=== PATIENT | female | born 2000 | race Caucasian/White ===

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

== ENCOUNTER 2022-07-26 13:21 | Emergency (ER) | payer BC, SELFPAY ==
[2022-07-26 14:02] VITALS: BP 125/80; PULSE 77; RESP 18; TEMP 36.6; O2SAT 99
[2022-07-26 14:49] LABS: Basophils Absolute Auto 0.1 K/mm3 (0.0-0.1); Basophils Percent Auto 0.8 % (0.2-1.2); Eosinophils Absolute Auto 0.2 K/mm3 (0-0.3); Eosinophils Percent Auto 2.1 % (0-4.4); Hematocrit 36.4 % (37.0-47.0); Hemoglobin 11.3 g/dL (12.0-15.0); Immature Granulocyte Absolute 0.04 K/mm3 (0.00-0.031); Immature Granulocyte Percent A 0.3 % (0-0.5); Lymphocytes Absolute Auto 1.74 K/mm3 (0.9-3.2); Lymphocytes Percent Auto 15.2 % (18.3-44.2); Mean Corpuscular Hemoglobin 26.4 pg (26-34); Mean Platelet Volume 10.3 fl (7.4-10.4); Monocytes Absolute Auto 0.9 K/mm3 (0.1-0.6); Monocytes Percent Auto 7.8 % (2.6-8.5); Neutrophils Absolute Auto 8.5 K/mm3 (1.3-6.7); Neutrophils Percent Auto 73.8 % (45.5-73.1); Platelet Count Result 296 k/mm3 (150-375); Red Blood Count 4.28 M/mm3 (4.2-5.4); Red Cell Distribution Width 14.2 % (11.5-14.5); White Blood Count 11.5 K/mm3 (4.5-10.0)
[2022-07-26 14:57] LABS: Appearance Urine Slightly Cloudy (Clear); Bilirubin Urine Negative (Negative); Blood Urine Negative (Negative); Color Urine Yellow (Yellow); Glucose Urine UA Negative (Negative); Ketones Urine Negative (Negative); Leukocyte Esterase Ur Negative LEU/UL (Negative); Nitrate Urine Negative (Negative); Protein Urine Negative (Negative); Urobilinogen Urine 0.2 mg/dL (<2.0)
[2022-07-26 15:33] LABS: Amorphous Sediment Urine Few; Bacteria Urine Trace /hpf; Mucus Urine Rare /lpf; RBC Urine 0-2 /hpf (0-2); Squamous Epithelial Cell Urine Many /hpf (Few); WBC Urine 0-3 /hpf
[2022-07-26 15:35] LABS: Add Urine Microscopic? YES
--- NOTE | 2022-07-26 21:10 | PC.NURSE ---
Pt did not answer for roll call at this time.
== END 2022-07-26 21:39 | disposition left against medical advice (07) ==
PROVIDERS: Emergency Provider Emergency Medicine; PCP Nurse Practitioner Adult Health
DX: R10.9 Unspecified abdominal pain (principal)
CPT/HCPCS: 36415; 81001; 81025; 85025; 99199

== ENCOUNTER 2022-12-22 11:24 | Emergency (ER) | payer BC, SELFPAY ==
--- NOTE | ~2022-12-22 | CT_ITS ---
EXAMINATION: CT abdomen pelvis w con DATE: 12/22/2022 14:28 INDICATION: Right upper quadrant tenderness, nausea and vomiting TECHNIQUE: Computed tomography (CT) of the abdomen and pelvis was performed with 100 CC Omnipaque 350 intravenous contrast. Automated exposure control and iterative reconstruction technique were employe d. Exam dose: 1269.45 mGy-cm total exam DLP. COMPARISON: None. FINDINGS: The lung bases are clear of infiltrate or consolidation. Normal heart size. No pericardial or pleural effusion. The liver, gallbladder, bile ducts, pancreas, pancreatic duct, spleen, adrenal glands and kidneys are unremarkable. The urinary bladder, uterus and adnexal areas are unremarkable. Normal appendix. No bowel obstruction, bowel wall thickening, pneumatosis or intraperitoneal free air. Small fat-containing umbilical hernia. Vertebroplasty at T8. No suspicious osteolytic or osteoblastic lesions are noted. IMPRESSION: Vertebroplasty at T8 Normal appendix If there is concern for cholelithiasis, consider gallbladder ultrasound, which would be more sensitiv e than CT examination. Reviewed, dictated and finalized at [facility]. Reviewed, dictated and finalized at [facility]. IMPRESSION: Vertebroplasty at T8 Normal appendix If there is concern for cholelithiasis, consider gallbladder ultrasound, which would be more sensitive than CT examination.
[2022-12-22 11:29] VITALS: BP 125/72; PULSE 72; RESP 18; TEMP 36.3; O2SAT 100
[2022-12-22 12:09] LABS: Basophils Percent Auto 0.6 % (0.2-1.2); Eosinophils Absolute Auto 0.1 K/mm3 (0-0.3); Eosinophils Percent Auto 1.3 % (0-4.4); Hematocrit 37.9 % (37.0-47.0); Hemoglobin 11.9 g/dL (12.0-15.0); Immature Granulocyte Absolute 0.02 K/mm3 (0.00-0.031); Immature Granulocyte Percent A 0.3 % (0-0.5); Lymphocytes Absolute Auto 1.37 K/mm3 (0.9-3.2); Lymphocytes Percent Auto 19.2 % (18.3-44.2); Mean Corpuscular HGB Conc 31.4 g/dl (32-36); Mean Corpuscular Hemoglobin 26.6 pg (26-34); Mean Corpuscular Volume 84.6 fl (80-100); Monocytes Absolute Auto 0.5 K/mm3 (0.1-0.6); Monocytes Percent Auto 6.7 % (2.6-8.5); Neutrophils Absolute Auto 5.1 K/mm3 (1.3-6.7); Neutrophils Percent Auto 71.9 % (45.5-73.1); Platelet Count Result 299 k/mm3 (150-375); Red Blood Count 4.48 M/mm3 (4.2-5.4); Red Cell Distribution Width 13.7 % (11.5-14.5); White Blood Count 7.1 K/mm3 (4.5-10.0)
[2022-12-22 12:14] LABS: Appearance Urine Cloudy (Clear); Bacteria Urine Rare /hpf; Bilirubin Urine Negative (Negative); Blood Urine Negative (Negative); Color Urine Yellow (Yellow); Glucose Urine UA Negative (Negative); Ketones Urine Trace mg/dL (Negative); Leukocyte Esterase Ur Negative LEU/UL (Negative); Nitrate Urine Negative (Negative); Non Pathogenic Casts 0-2; Protein Urine Trace mg/dL (Negative); Specific Grav Ur 1.025 (1.001-1.035); Squamous Epithelial Cell Urine Moderate /hpf (Few); pH Urine 7.5 (5.0-9.0)
[2022-12-22 12:21] LABS: Add Urine Microscopic? YES
[2022-12-22 12:23] LABS: Alanine Aminotransferase 20 U/L (6-35); Albumin Level 4.7 g/dL (3.5-5.1); Alkaline Phosphatase 79 U/L (38-126); Anion Gap 9 mmol/L (8-16); Aspartate Amino Transferase 25 U/L (14-36); Bilirubin,Total 0.7 mg/dL (0.2-1.3); Blood Urea Nitrogen 9 mg/dL (7-17); Carbon Dioxide 24 mmol/L (22-30); Chloride 106 mmol/L (98-107); Estimated CRCL calculation 196 ml/min; Estimated Glomerular Filt Rate > 60; Glucose 87 mg/dL (65-110); Lipase 74 U/L (23-300); Sodium 139 mmol/L (137-145)
--- NOTE | 2022-12-22 13:00 | ED.ABDPAIN ---
HPI - Abdominal Pain General Chief Complaint: Abdominal Pain Stated Complaint: abdominal pain Time Seen by Provider: 12/22/22 12:00 History of Present Illness HPI narrative: Patient is a 22-year-old female presenting with abdominal pain. Patient states that for the last year to year and a half she has struggled with chronic left-sided abdominal pain. She has seen GI and they have tried multiple medications which have provided minimal relief. States that for the last several days she has had a right upper quadrant pain that radiates to her right flank. States that she has never had this kind of pain before. States that she has had several episodes of emesis. States that she has not vomited today but she does have a decreased appetite. Denies fevers or chills, chest pain, shortness of breath, dysuria, hematuria, vaginal discharge, leg swelling. States that she just finished her menstrual cycle. Related Data Home Medications Medication Instructions Recorded Confirmed escitalopram oxalate 10 mg tablet 10 mg PO DAILY 08/11/21 08/11/21 (Lexapro) ferrous fumarate 325 mg (106 mg 325 mg PO DAILY 08/11/21 08/11/21 iron) tablet Allergies Allergy/AdvReac Type Severity Reaction Status Date / Time No Known Allergies Allergy Verified 12/22/22 11:40 Review of Systems Review of Systems: All systems reviewed & are unremarkable except as noted in HPI and below PMFSH Past Medical History Medical History Anxiety Depression Encounter for Nexplanon removal 08/11/2021 Insertion of Nexplanon (~07/11/20) Family History Family History Grandparent Acute myocardial infarction Lung cancer Hypertension Social History Social History Smoking status: Current some day smoker Tobacco type: e-cigarettes/vaping Alcohol intake: never Alcohol use details: occasional Substance use: never Substance use type: does not use Occupation/Education: unemployed Gender identity (if verbalized by the patient): Female Sexual Orientation (if Verbalized by the Patient): Straight or Heterosexual Exam Narrative: GENERAL: Nontoxic, intermittently tearful secondary to anxiety, pleasant and cooperative HEAD: Normocephalic, atraumatic. EYES: PERRLA and EOMI. ENT: Nares clear, no rhinorrhea or epistaxis. Mucous membranes moist. NECK: Supple. CHEST: Clear to auscultation. No respiratory distress. HEART: Regular rate and rhythm. ABDOMEN: Soft, + mildly tender RUQ/LUQ/LLQ, no guarding or rebound EXTREMITIES: Normal range of motion. No edema. SKIN: Warm, dry, no rash. NEURO: No focal deficits. Alert and oriented x3. PSYCH: anxious, intermittently tearful Course Vital Signs Vital signs: Vital Signs Temperature 97.4 F L 12/22/22 11:29 Pulse Rate 72 12/22/22 11:29 Respiratory Rate 18 12/22/22 11:29 Blood Pressure 125/72 12/22/22 11:29 Pulse Oximetry 100 12/22/22 11:29 Oxygen Delivery Room Air 12/22/22 11:29 Temperature 97.4 F L 12/22/22 11:29 Pulse Rate 68 12/22/22 17:40 Respiratory Rate 18 12/22/22 11:29 Blood Pressure 118/73 12/22/22 17:40 Pulse Oximetry 99 12/22/22 17:40 Oxygen Delivery Room Air 12/22/22 11:29 MDM - Abdominal Pain MDM Narrative Medical decision making narrative: Patient is a 22-year-old female presenting with right-sided abdominal pain. Vitals within normal limits. Exam remarkable for the above. As the patient swelling me that the right upper quadrant pain is no and her left-sided pain is worsened, feel CT abdomen pelvis is necessary. Will check labs, give fluids and small dose of Ativan for her anxiety. Blood work is unremarkable. No leukocytosis. No transaminitis. Lipase is normal. CT abdomen pelvis shows no acute abnormalities. Do not feel further imaging is warranted for cho
[2022-12-22] MEDS: LORazepam INJ (*CRX) 2 MG/ML VIAL 0.5 MG IV PUSH (13:17)
[2022-12-22] MEDS: SODIUM CHLORIDE 0.9% IV 1,000 ML 999 ML IV CONT (13:17)
[2022-12-22 14:36] VITALS: BP 124/76; PULSE 79; O2SAT 99
[2022-12-22 17:40] VITALS: BP 118/73; PULSE 68; O2SAT 99
== END 2022-12-22 17:41 | disposition home or self-care (01) ==
PROVIDERS: General Practice; Emergency Provider Emergency Medicine
DX: R10.11 Right upper quadrant pain (principal); F41.9 Anxiety disorder, unspecified; F32.A Depression, unspecified; F17.290 Nicotine dependence, other tobacco product, uncomplicated
CPT/HCPCS: 36415; 74177; 80053; 81001; 81025; 83690; 85025; 87077; 87086; 87088; 96361; 96374; 99284; J2060; J7030; Q9967

== ENCOUNTER 2023-02-21 22:08 | Emergency (ER) | payer BC, SELFPAY ==
--- NOTE | ~2023-02-21 | XR_ITS ---
Clinical Indication: Chest pain PA and lateral views of the chest: Comparison: None Findings: The lungs are clear, without evidence of focal consolidation or pleural effusion. Cardiome diastinal silhouette is within normal limits. Bones and soft tissues are unremarkable. Impression: Normal chest. Reviewed, dictated and finalized at location . Impression: Normal chest.
[2023-02-21 22:15] VITALS: BP 152/99; PULSE 93; RESP 16; TEMP 36.9; O2SAT 99
--- NOTE | 2023-02-21 22:15 | ECG_ITS ---
Measurements Intervals [place] Rate: 88 P: 48 MO: 119 QRS: 39 QRSD: 106 T: 11 QT: 344 QTc: 417 Interpretive Statements SINUS RHYTHM WITH SINUS ARRHYTHMIA WITH SHORT MO INTERVAL POSSIBLE LEFT ATRIAL ENLARGEMENT [-0.1mV P WAVE IN V1/V2] POSSIBLE RIGHT VENTRICULAR CONDUCTION DELAY [RSR (QR) IN V1/V2] BORDERLINE ECG NO PREVIOUS ECG AVAILABLE FOR COMPARISON Electronically Signed On 02-22-2023 12:58:22 CDT by Kleber Amaral M.D.
--- NOTE | 2023-02-21 23:15 | PC.NURSE ---
X-ray called and advised that patient wanted a test before X-ray.
[2023-02-22] VITALS (15 sets, daily range): BP systolic 122–152; BP diastolic 65–127; PULSE 85–105; RESP 15–24; O2SAT 99–100
[2023-02-22 02:10] LABS: Basophils Percent Auto 0.4 % (0.2-1.2); Eosinophils Absolute Auto 0.3 K/mm3 (0-0.3); Eosinophils Percent Auto 2.5 % (0-4.4); Hematocrit 35.6 % (37.0-47.0); Hemoglobin 10.9 g/dL (12.0-15.0); Immature Granulocyte Absolute 0.03 K/mm3 (0.00-0.031); Immature Granulocyte Percent A 0.3 % (0-0.5); Lymphocytes Absolute Auto 1.82 K/mm3 (0.9-3.2); Lymphocytes Percent Auto 17.7 % (18.3-44.2); Mean Corpuscular HGB Conc 30.6 g/dl (32-36); Mean Corpuscular Hemoglobin 26.3 pg (26-34); Mean Platelet Volume 10.8 fl (7.4-10.4); Monocytes Absolute Auto 0.8 K/mm3 (0.1-0.6); Monocytes Percent Auto 7.6 % (2.6-8.5); Neutrophils Absolute Auto 7.3 K/mm3 (1.3-6.7); Neutrophils Percent Auto 71.5 % (45.5-73.1); Platelet Count Result 238 k/mm3 (150-375); Red Blood Count 4.14 M/mm3 (4.2-5.4); Red Cell Distribution Width 14.7 % (11.5-14.5); White Blood Count 10.3 K/mm3 (4.5-10.0)
[2023-02-22 02:20] LABS: Alanine Aminotransferase 29 U/L (6-35); Albumin Level 4.3 g/dL (3.5-5.1); Alkaline Phosphatase 59 U/L (38-126); Anion Gap 7 mmol/L (8-16); Aspartate Amino Transferase 30 U/L (14-36); Bilirubin,Total 0.4 mg/dL (0.2-1.3); Blood Urea Nitrogen 12 mg/dL (7-17); Carbon Dioxide 21 mmol/L (22-30); Chloride 107 mmol/L (98-107); Estimated CRCL calculation 190 ml/min; Estimated Glomerular Filt Rate > 60; Glucose 93 mg/dL (65-110); Lipase 67 U/L (23-300); Potassium 3.7 mmol/L (3.4-5.0); Sodium 135 mmol/L (137-145)
[2023-02-22 02:30] LABS: Troponin I < 0.012 ng/mL (0.000-0.034)
[2023-02-22 02:31] LABS: Anisocytosis 1+ (NORMAL); Crenated RBC 1+ (NORMAL); Platelet Estimate Adequate (Adequate); Prothrombin Time 13.7 Seconds (11.1-14.7); Schistocytes None Seen (NORMAL)
[2023-02-22 02:32] LABS: Partial Thromboplastin Time 21.6 SECONDS (22.3-36.8)
[2023-02-22] MEDS: hydrOXYzine HCL 25 MG TABLET PO (03:12)
[2023-02-22] MEDS: ONDANSETRON INJ 4 MG/2 ML VIAL IV PUSH (03:12)
--- NOTE | 2023-02-22 03:50 | ED.CHESTPAIN ---
HPI - Chest Pain General Chief Complaint: Chest Pain Stated Complaint: chest pain Time Seen by Provider: 02/22/23 01:14 Source: patient Mode of arrival: ambulatory Limitations: no limitations History of Present Illness HPI narrative: 22-year-old female presents today with concerns of chest pain. Patient with known history of anxiety seeing a counselor waiting to see psychiatry. Chest pain is intermittent and has been over the last 2 to 3 days. Patient denies any aggravating or alleviating factors. Denies any medical history of cardiac issues. Also denies known family history of cardiac issues. Does endorse of shortness of breath with chest tightness. Denies any recent long trips. She does not smoke, does not use control. Related Data Home Medications Medication Instructions Recorded Confirmed escitalopram oxalate 10 mg tablet 10 mg PO DAILY 08/11/21 08/11/21 (Lexapro) ferrous fumarate 325 mg (106 mg 325 mg PO DAILY 08/11/21 08/11/21 iron) tablet Allergies Allergy/AdvReac Type Severity Reaction Status Date / Time No Known Allergies Allergy Verified 12/22/22 11:40 Review of Systems Review of Systems: All systems reviewed & are unremarkable except as noted in HPI and below PMFSH Past Medical History Medical History Anxiety Depression Encounter for Nexplanon removal 08/11/2021 Insertion of Nexplanon (~07/11/20) Family History Family History Grandparent Acute myocardial infarction Lung cancer Hypertension Social History Social History Smoking status: Current some day smoker Tobacco type: e-cigarettes/vaping Alcohol intake: never Alcohol use details: occasional Substance use: never Substance use type: does not use Occupation/Education: unemployed Gender identity (if verbalized by the patient): Female Sexual Orientation (if Verbalized by the Patient): Straight or Heterosexual Exam Const: General: cooperative, healthy appearing, comfortable, no acute distress and well developed Orientation/consciousness: patient oriented x3 HENMT: Head: normal to inspection Eyes: General: appearance normal, both eyes and all related structures Chest: Chest palpation & inspection: normal inspection of the chest and tenderness (left mid chest) Resp: Effort & Inspection: normal respiratory effort and able to speak in complete sentences Auscultation: clear to auscultation bilaterally Cardio: Rate: regular rate Rhythm: regular rhythm Heart sounds: S1 normal heart sound present and S2 normal heart sound present Neuro: General: patient oriented x3 Extrem: General: normal to inspection Other: Normal range of motion upper extremities. No pain with movement. Course Course Emergency Course: Discussed results with patient. States she is currently having heaviness and feels anxious. Did review EKG, labs and that nothing is concerning at this time. Will treat with some Atarax. Patient with nausea given Zofran. Patient feeling better without chest tightness or nausea. Will discharge home. Vital Signs Vital signs: Vital Signs Temperature 98.4 F 02/21/23 22:15 Pulse Rate 93 02/21/23 22:15 Respiratory Rate 16 02/21/23 22:15 Blood Pressure 152/99 H 02/21/23 22:15 Pulse Oximetry 99 02/21/23 22:15 Oxygen Delivery Room Air 02/21/23 22:15 Temperature 98.4 F 02/21/23 22:15 Pulse Rate 88 02/22/23 03:04 Respiratory Rate 18 02/22/23 03:04 Blood Pressure 122/73 02/22/23 03:04 Pulse Oximetry 100 02/22/23 03:04 Oxygen Delivery Room Air 02/21/23 22:15 MDM - Chest Pain MDM Narrative Medical decision making narrative: 22-year-old female HPI as noted. Differentials as noted below. Work-up to include CBC, CMP, urine test, D-dimer, lipase, chest x-ray. CBC wit
== END 2023-02-22 04:24 | disposition home or self-care (01) ==
PROVIDERS: Emergency Medicine; Emergency Provider Nurse Practitioner Family
DX: R07.9 Chest pain, unspecified (principal); F41.9 Anxiety disorder, unspecified; F17.290 Nicotine dependence, other tobacco product, uncomplicated; F32.A Depression, unspecified
CPT/HCPCS: 36415; 71046; 80053; 81025; 83690; 84484; 85025; 85055; 85380; 85610; 85730; 93005; 96374; 99284; A9270; J2405

== ENCOUNTER 2024-12-15 15:54 | Outpatient (CLI) | payer OTHER, SELFPAY ==
--- NOTE | ~2024-12-15 | XR_ITS ---
Cervical Spine: AP, lateral, open-mouth views Clinical History: Pain Findings: The normal lordotic curve is maintained. The vertebral bodies and posterior elements appea r intact. The intervertebral disc spaces are well maintained. Pre-vertebral soft tissues are unremar kable. Impression: No significant abnormality is seen. Reviewed, dictated and finalized at [facility]. Impression: No significant abnormality is seen.
--- OUTSIDE RECORDS SUMMARY | 2024-12-15 15:58 | XMS_ITS | Referral Summary ---
Author Organization [facility] Address [address] [place] [id number] Care Team Providers Care Sharepoint Application Architect Name Role Phone No, Physician Primary Care Provider Unknown, Notinfile Unavailable Unavailable Allergies No known active allergies Medications diclofenac sodium (VOLTAREN) 1 % gel Apply 2 g topically 4 (four) times a day 50 g 2 3 Active omeprazole (PriLOSEC) 40 mg capsule Take 1 capsule (40 mg total) by mouth daily 30 capsule 2 3 Active ondansetron ODT (ZOFRAN-ODT) 4 mg disintegrating tablet Dissolve 1 tablet oral every 4 hours as needed for nausea or vomiting. 20 tablet 3 Active Active Problems Problem Noted Date Diagnosed Date Esophageal dysphagia 11/22/2022 Social History Tobacco Use Types Packs/Day Years Used Date Smoking Tobacco: Never Tobacco Cessation:Counseling Given: Not Answered Alcohol Use Standard Drinks/Week Comments Not Currently 0 (1 standard drink = 0.6 oz pur e alcohol) AUDIT-C Answer Date Recorded Frequency of Alcohol Consumption Not on file 11/22/2022 Q2: How many drinks containi ng alcohol do you have on a typical day when you are drinking? Patient does not drink 3 Frequency of Binge Drinking Not on file 10/2022 PHQ-2 Answer Date Recorded PHQ-2 Total Score (If total score is 3 or more points, staff should administer the PHQ-9) 0 11/22/2022 Personal Safety Answer Date Recorded Have you ever been in or are you currently in a harmful physical or emotional relationship or is someone making you feel afraid or unsafe? Denies 06/12/2023 Comments No Sex and Gender Information Value Date Recorded Sex Assigned at Not on file Legal Sex Female 7:43 PM PRINT MANAGER Gender Identity Not on file Sexual Orientation Not on file Last Filed Vital Signs Vital Sign Reading Time Taken Comments Blood Pressure 118/66 06/12/2023 6:40 AM PRINT MANAGER Pulse 113 06/12/2023 6:40 AM PRINT MANAGER Temperature 36.8 C (98.2 F) 06/12/2023 6:40 AM PRINT MANAGER Respiratory Rate 18 06/12/2023 6:40 AM PRINT MANAGER Oxygen Saturation 99% 06/12/2023 6:40 AM PRINT MANAGER Inhaled Oxygen Concentration - - Weight 117.9 kg (260 lb) 06/12/2023 2:16 AM PRINT MANAGER Height 167.6 cm (5' 6 ) 06/12/2023 2:16 AM PRINT MANAGER Body Mass Index 41.97 06/12/2023 2:16 AM PRINT MANAGER Plan of Treatment Not on file Insurance [facility] Member Subscriber Plan / Payer (Ef fective 2020-Present) Name:Wilder Holland Relation to Subscriber:Self Name:Wilder Holland Payer ID:[id number] (NAIC) Type:MEDICAID RISK OTHER [address] [facility] Care Teams Sharepoint Application Architect Relationship Specialty Start Date End Date No, Physician PCP - General 07/26/22 Unknown, Notinfile 07/26/22
--- OUTSIDE RECORDS SUMMARY | 2024-12-15 15:58 | XMS_ITS | CONTINUITY OF CARE DOCUMENT ---
Author Name loy granado Address Unknown Organization [facility] Address [address] [place] [address] [address] [place] [address] Phone [phone] Care Team Providers Care [employer] Supervisor Name Role Phone Javier GEORGE, Richa Unavailable Keysha HISTORIC SITES SUPERVISOR, Secil Unavailable [phone] Keysha HISTORIC SITES SUPERVISOR, Secil Unavailable PROBLEMS Condition Status Date Provider Notes IRON DEFICIENCY active Goran Tran MD nml b12 and foalte Screening completed - Viet Augustin eng d and chol and crp and pro and tsh and a1c and uacr and lpa Obesity active Goran Tran MD Exposure to SARS-associated coronavirus;NEG SWAB and IGG completed - Viet Mathewi Chest pain--echo, routine stress nl, 03/2023 active Viet Augustin Palpitations active Goran Tran MD Abnormal electrocardiogram completed 03/20 - Viet Mathewi Shortness of breath active Viet Ahmedzai Anxiety active Viet Augustin Tobacco abuse--quit active Viet Augustin ENCOUNTERS Date Type Provider Location Encounter Diag nosis - In-person encounter Office Visit Richa Herrera MD [place] Office ScreeningExposure to SARS-associated coronavirus;NEG SWAB and IGGChest pain--echo, routine stress nl, bnormal electrocardiogramShortness of breathAnxietyTobacco abuse--quit - In-person encounter Office Visit Goran Tran MD [place] [facility] ScreeningObesityExposure to SARS-associated coronavirus;NEG SWAB and IGGChest pain--echo, routine stress nl, alpitations VITAL SIGNS Date Observation Value Provider Body Mass Index (Ratio) 43.41 kg/m2 Andrzej Herrera MD blood pressure, diastolic 71 mm[Hg] Ham contreras Shonda blood pressure, systolic 129 mm[Hg] She alejandro Shonda pulse rate 78 /min Eleanor Merchant weight E&M 269 [lb_av] Eleanor Merchant oxygen saturation, oximetry 98 % Eleanor Merchant respiratory rate E&M 16 /min Eleanor Merchant blood pressure, cuff size large ben Shonda height E&M 66 [in_i] Eleanor Shonda weight E&M 266 [lb_av] Caity Jose Alfredochaparrita gomez Body Mass Index (Ratio) 42.93 kg/m2 Adis Tran MD blood pressure, diastolic 86 mm[Hg] Beatrice Thomas blood pressure, systolic 112 mm[Hg] Bridgette Thomas respiratory rate E&M 17 /min Ree chang pulse rate 81 /min Ree Thomas oxygen saturation, oximetry 100 % Ree Thomas weight E&M 266 [lb_av] Ree Thomas height E&M 66 [in_i] Ree Thomas blood pressure, cuff size large An norma Thomas HISTORY OF MEDICATION USE Medication Status Instructions Dates Provider Indications Com ments FeroSul 325 mg (65 mg iron) tablet active TAKE 1 TABLET BY MOUTH EVERY DAY Goran Tran MD SOCIAL HISTORY Date Observation Value Provider social history E&M S moking History: Robin red has never smoked. Viet Augustin smoking status Never smoker Eleanor Merchant social history reviewed E&M revi ewed - no changes required Viet Augustin social history E&M S moking History: Robin red is a former smoker. Goran Tran MD social history reviewed E&M revi ewed - no changes required Goran Tran MD smoking, year quit 2022 Ree Will iams cigarette use yes Ree William smoking status Former smoker Ree Kayode jim INSURANCE PROVIDERS Payer name Policy type / Coverage type Logan red republican ID [facility] [id number] ADVANCE DIRECTIVES Name Date DISCUSSED - NO DECISION MADE TREATMENT PLAN Date Name Performer [id number],S, Viet Ahkathleen i [id number],S, Vietalan Mathew i [id number],S, Vietalan Mathew i [id number],S, Viet Mathew i [id number],S, Viet Mathew i [id number],S, Vietalan Mathew i [id number],NGoran MD [id number],SGoran MD [id number],SGoran MD [id number],S,E GFR 132 [address] EG LIPASE N EG BRAIN AND ABD CT Goran Tran MD [id number],Goran Jim MD Cardiology Viet Augustin Cardiology Viet Augustin Cardiology Viet Augustin Cardiology Viet Augustin Cardiology Viet Augustin Cardiology Viet Augustin Cardiology Goran Tran MD Cardiology Goran Tran MD Cardiology Goran Tran MD Cardiology:EGFR [address] EG LIPASE N EG BRAIN AND ABD CT Goran Tran MD Cardiology Goran Tran MD Date Name X-Ray, Cervical Spin e CT Cervical Spine wi thout contrast FOLATE, SERUM VITAMIN B12 Monitor - Telemetry (Mobile Cardiac) CRP, high sensitivit y PROBNP, N TERMINAL TSH, free T4, total T3 Lipoprotein (a) LIPID PANEL Stress Routine Complete Echo CXR- PA/Lat Vitamin D, 25-Hydrox y HEMOGLOBIN A1c Microalb/Creatinine Urine, Random IRON AND TOTAL IRON BINDING CAPACITY FERRITIN HISTORY OF PROCEDURES Procedure Date Procedure Name Provider Procedure Notes S tatus EKG Goran Tran MD complete d
--- OUTSIDE RECORDS SUMMARY | 2024-12-15 15:58 | XMS_ITS | Clinical Summary ---
Author Organization [facility] Address [address] [place] [id number] Care Team Providers Care Tours Hostess Name Role Phone No, Physician Primary Care Provider [phone] Unknown, Notinfile Unavailable Unavailable Allergies No known [...] Noted Date Diagnosed Date Esophageal dysphagia 11/22/2022 Surgical History Surgery Date Site/Laterality Comments UPPER GASTROINTESTINAL ENDOSCOPY Medical History Medical History Date Comments IBS (irritable bowel syndrome) Anxiety Social History Tobacco Use Types Packs/Day Years [...] on file Legal Sex Female 7:43 PM PHLEBOTOMY SUPPORT TECH Gender Identity Not on file Sexual Orientation Not on file Obstetrics History Last Filed Vital Signs Vital Sign Reading Time Taken Comments Blood Pressure 118/66 06/12/2023 6:40 AM PHLEBOTOMY SUPPORT TECH Pulse 113 06/12/2023 6:40 AM PHLEBOTOMY SUPPORT TECH Temperature 36.8 C (98.2 F) 06/12/2023 6:40 AM PHLEBOTOMY SUPPORT TECH Respiratory Rate 18 06/12/2023 6:40 AM PHLEBOTOMY SUPPORT TECH Oxygen Saturation 99% 06/12/2023 6:40 AM PHLEBOTOMY SUPPORT TECH Inhaled Oxygen Concentration - - Weight 117.9 kg (260 lb) 06/12/2023 2:16 AM PHLEBOTOMY SUPPORT TECH Height 167.6 cm (5' 6 ) 06/12/2023 2:16 AM PHLEBOTOMY SUPPORT TECH Body Mass Index 41.97 06/12/2023 2:16 AM PHLEBOTOMY SUPPORT TECH Plan of Treatment Health Maintenance Due Date Last Done Comments Cervical Cancer Screening 2002 Hepatitis C Screening 2002 Varicella Vaccines (2 of 2 - 2-dose childhood series) 08/07/2012 05/15/2012 Meningococcal B Vaccine (1 o f 2 - Standard) 2018 Regular Well Visit/Exam 18-64 2020 Depression Screening 11/23/2023 11/22/2022 DTaP/Tdap/Td Vaccine (7 - Td or Tdap) 02/25/2025 02/25/2015, 11/12/2007, 01/25/2006, Additional history exists Influenza Vaccine (Season Ended) 2025 Hepatitis B Screening Completed 2002 , 2002, 2002 Pneumococcal vaccine <65 Completed 004, 02/06/2003, 2002, Additional history exists HPV Vaccines Completed 12/30/2017, 02/25/2015 Insurance [facility] Care Teams Tours Hostess Relationship Specialty Start Date End Date No, Physician PCP - General 07/26/22 Unknown, Notinfile 07/26/22
--- OUTSIDE RECORDS SUMMARY | 2024-12-15 15:58 | XMS_ITS | Clinical Summary ---
Author Organization [facility] Address [address] [place] [address] Phone Care Team Providers Care Account Executive Agribusiness Name Role Phone Provider, None Primary Care Provider Unavailabl e Allergies No known active allergies Medications No known medications Social History Tobacco Use Types Packs/Day Years Used Date Smoking Tobacco: Never Smokeless Tobacco: Never Alcohol Use Standard Drinks/Week Comments Never 0 (1 standard drink = 0.6 oz pur e alcohol) Comments Unknown Sex and Gender Information Value Date Recorded Sex Assigned at Not on file Legal Sex Female 4:03 PM CDT Gender Identity Not on file Sexual Orientation Not on file Last Filed Vital Signs Vital Sign Reading Time Taken Comments Blood Pressure 116/70 01/10/2022 6:29 PM CDT Pulse 66 01/10/2022 6:29 PM CDT Temperature 36.4 C (97.5 F) 01/10/2022 6:29 PM CDT Respiratory Rate 16 01/10/2022 6:29 PM CDT Oxygen Saturation 99% 01/10/2022 6:29 PM CDT Inhaled Oxygen Concentration - - Weight 115.7 kg (255 lb) 01/10/2022 4:10 PM CDT Height 167.6 cm (5' 6 ) 01/10/2022 4:10 PM CDT Body Mass Index 41.16 01/10/2022 4:10 PM CDT Plan of Treatment Not on file Insurance MEDICAID [place] Care Teams Account Executive Agribusiness Relationship Specialty Start Date End Date Provider, None [place] PCP - General 01/10/22
[2024-12-15 19:06] LABS: Iron 56 ug/dL (37-170)
[2024-12-15 19:09] LABS: Alanine Aminotransferase 20 U/L (6-35); Albumin Level 4.2 g/dL (3.5-5.1); Alkaline Phosphatase 65 U/L (38-126); Anion Gap 6 mmol/L (4-12); Aspartate Amino Transferase 49 U/L (14-36); Bilirubin,Total 0.3 mg/dL (0.2-1.3); Blood Urea Nitrogen 11 mg/dL (7-17); Carbon Dioxide 26 mmol/L (22-30); Chloride 107 mmol/L (98-107); Estimated Glomerular Filt Rate > 60; Glucose 85 mg/dL (65-110); Potassium 4.3 mmol/L (3.4-5.0); Sodium 139 mmol/L (137-145)
[2024-12-15 19:25] LABS: Percent Iron Saturation 16 % (20-50)
[2024-12-15 20:15] LABS: Basophils Absolute Auto 0.1 K/mm3 (0.0-0.1); Basophils Percent Auto 0.6 % (0.2-1.2); Eosinophils Absolute Auto 0.3 K/mm3 (0-0.3); Eosinophils Percent Auto 2.9 % (0-4.4); Hemoglobin 11.1 g/dL (12.0-15.0); Immature Granulocyte Absolute 0.35 K/mm3 (0.00-0.031); Immature Granulocyte Percent A 3.9 % (0-0.5); Lymphocytes Absolute Auto 1.95 K/mm3 (0.9-3.2); Lymphocytes Percent Auto 21.6 % (18.3-44.2); Mean Corpuscular Hemoglobin 25.8 pg (26-34); Mean Corpuscular Volume 85.8 fl (80-100); Mean Platelet Volume 10.5 fl (7.4-10.4); Monocytes Absolute Auto 0.7 K/mm3 (0.1-0.6); Monocytes Percent Auto 7.9 % (2.6-8.5); Neutrophils Absolute Auto 5.7 K/mm3 (1.3-6.7); Neutrophils Percent Auto 63.1 % (45.5-73.1); Platelet Count Result 303 k/mm3 (150-375); Red Blood Count 4.31 M/mm3 (4.2-5.4); Red Cell Distribution Width 14.6 % (11.5-14.5)
== END 2024-12-15 15:55 | disposition home or self-care (01) ==
LOC: ANHBWCLAB 15:56
PROVIDERS: PCP Nurse Practitioner Adult Health; Visit Provider Nurse Practitioner Adult Health
DX: M54.2 Cervicalgia (principal); R07.89 Other chest pain; Z86.2 Personal history of diseases of the blood and blood-forming organs and certain disorders involving the immune mechanism
CPT/HCPCS: 36415; 72040; 80053; 82607; 82728; 83540; 83550; 85025

== ENCOUNTER 2024-12-22 15:30 | Emergency (ER) | payer OTHER, SELFPAY ==
[2024-12-22] VITALS (9 sets, daily range): BP systolic 114–138; BP diastolic 51–95; PULSE 82–100; RESP 16–18; TEMP 36.6; O2SAT 99–100
--- OUTSIDE RECORDS SUMMARY | 2024-12-22 15:33 | XMS_ITS | Clinical Summary ---
Author Organization [facility] Address [address] [place] [address] Care Team Providers Care Crm Marketing Executive Name Role Phone No, Physician Primary Care Provider [phone] Unknown, Notinfile Unavailable Unavailable Allergies No known [...] on file Legal Sex Female 7:43 PM NURSING HOME MANAGER Gender Identity Not on file Sexual Orientation Not on file Obstetrics History Last Filed Vital Signs Vital Sign Reading Time Taken Comments Blood Pressure 118/66 06/12/2023 6:40 AM NURSING HOME MANAGER Pulse 113 06/12/2023 6:40 AM NURSING HOME MANAGER Temperature 36.8 C (98.2 F) 06/12/2023 6:40 AM NURSING HOME MANAGER Respiratory Rate 18 06/12/2023 6:40 AM NURSING HOME MANAGER Oxygen Saturation 99% 06/12/2023 6:40 AM NURSING HOME MANAGER Inhaled Oxygen Concentration - - Weight 117.9 kg (260 lb) 06/12/2023 2:16 AM NURSING HOME MANAGER Height 167.6 cm (5' 6) 06/12/2023 2:16 AM NURSING HOME MANAGER Body Mass Index 41.97 06/12/2023 2:16 AM NURSING HOME MANAGER Plan of Treatment Health Maintenance Due Date [...] exists HPV Vaccines Completed 12/30/2017, 02/25/2015 Insurance [facility] PLAN [facility] PL[facility] PL[facility] PL[facility] Care Teams Crm Marketing Executive Relationship Specialty Start Date End Date No, Physician PCP - General 07/26/22 Unknown, Notinfile 07/26/22
--- OUTSIDE RECORDS SUMMARY | 2024-12-22 15:33 | XMS_ITS | Referral Summary ---
Author Organization [facility] Address [address] [place] [address] Care Team Providers Care Director Metabolism Name Role Phone No, Physician Primary Care Provider [phone] Unknown, Notinfile Unavailable Unavailable Allergies No known [...] on file Legal Sex Female 7:43 PM COIL WINDING SUPERVISOR Gender Identity Not on file Sexual Orientation Not on file Last Filed Vital Signs Vital Sign Reading Time Taken Comments Blood Pressure 118/66 06/12/2023 6:40 AM COIL WINDING SUPERVISOR Pulse 113 06/12/2023 6:40 AM COIL WINDING SUPERVISOR Temperature 36.8 C (98.2 F) 06/12/2023 6:40 AM COIL WINDING SUPERVISOR Respiratory Rate 18 06/12/2023 6:40 AM COIL WINDING SUPERVISOR Oxygen Saturation 99% 06/12/2023 6:40 AM COIL WINDING SUPERVISOR Inhaled Oxygen Concentration - - Weight 117.9 kg (260 lb) 06/12/2023 2:16 AM COIL WINDING SUPERVISOR Height 167.6 cm (5' 6) 06/12/2023 2:16 AM COIL WINDING SUPERVISOR Body Mass Index 41.97 06/12/2023 2:16 AM COIL WINDING SUPERVISOR Plan of Treatment Not on file Insurance [facility] Member Subscriber Plan / Payer (Ef fective 2020-Present) Name:Wilder Holland Relation to Subscriber:Self Name:Wilder Holland Payer ID:[id number] (NAIC) Type:MEDICAID RISK OTHER [address] [facility] PLAN [facility] PLAN [facility] Care Teams Director Metabolism Relationship Specialty Start Date End Date No, Physician PCP - General 07/26/22 Unknown, Notinfile 07/26/22
--- OUTSIDE RECORDS SUMMARY | 2024-12-22 15:33 | XMS_ITS | Clinical Summary ---
Author Organization [facility] Address [address] [place] [address] Phone Care Team Providers Care Electrician Sound Name Role Phone Provider, None Primary Care [...] 4:10 PM CDT Height 167.6 cm (5' 6) 01/10/2022 4:10 PM CDT Body Mass Index 41.16 01/10/2022 4:10 PM CDT Plan of Treatment Not on file Insurance [place] Care Teams Electrician Sound Relationship Specialty Start Date End Date Provider, None [place] PCP - General 01/10/22
--- OUTSIDE RECORDS SUMMARY | 2024-12-22 15:33 | XMS_ITS | CONTINUITY OF CARE DOCUMENT ---
Author Name loy granado Address Unknown Organization [facility] Address [address] [place] [address] [address] [place] [address] Phone [phone] Care Team Providers Care Hot Mill Shearer Name Role Phone Javier GEORGE, Richa Unavailable [phone] Keysha SUPERVISOR HAND SILVERING, Secil Unavailable Keysha SUPERVISOR HAND SILVERING, Secil Unavailable [phone] PROBLEMS Condition Status Date Provider Notes IRON DEFICIENCY active Goran Tran MD nml b12 and foalte Screening completed - Viet Augustin eng d and chol and crp and pro and tsh and a1c and uacr and lpa Obesity active Goran Tran MD Exposure to SARS-associated coronavirus;NEG SWAB and IGG completed - Viet Augustin Chest pain--echo, routine stress nl, 03/2023 active Viet Augustin Palpitations active Goran Tran MD Abnormal electrocardiogram completed 03/20 - Viet Mathewi Shortness of breath active Viet Ahmedzai Anxiety active Viet Augustin Tobacco abuse--quit active Viet Augustin ENCOUNTERS Date Type Provider Location Encounter Diag nosis - In-person encounter Office Visit Richa Herrera MD [place] Office ScreeningExposure to SARS-associated coronavirus;NEG SWAB and IGGChest pain--echo, routine stress nl, bnormal electrocardiogramShortness of breathAnxietyTobacco abuse--quit - In-person encounter Office Visit Goran Tran MD [place] Office ScreeningObesityExposure to SARS-associated coronavirus;NEG SWAB and [...] Payer name Policy type / Coverage type [employer] red alliance party ID [facility] [id number] ADVANCE DIRECTIVES Name Date DISCUSSED - NO DECISION MADE TREATMENT PLAN Date Name Performer [id number],S, Ivet Ahkathleen i [id number],S, Vietalan Mathew i [id number],S, Vietalan Mathew i [id number],S, Viet Mathew i [id number],S, Viet Mathew i [id number],S, Vietalan Mathew i [id number],NGoran MD [id number],SGoran MD [id number],SGoran MD [id number],S,E GFR 132 N EG LIPASE N EG BRAIN AND ABD CT Goran Tran MD [id number],Goran Jim MD Cardiology Viet Augustin Cardiology Viet [...]
--- NOTE | 2024-12-22 15:38 | ECG_ITS ---
Test Date: 2024-12-22 15:42:35 Measurements Intervals [place] Rate: 86 P: 36 IA: 134 QRS: 14 QRSD: 97 T: 5 QT: 372 QTc: 447 Interpretive Statements SINUS RHYTHM WITH MARKED SINUS ARRHYTHMIA EARLY PRECORDIAL R/S TRANSITION CONSIDER INFERIOR INFARCT, AGE INDETERMINATE BASELINE ARTIFACT- I, II, III, AVR, AVL, AVF, V6 ABNORMAL ECG No previous ECG available for comparison Electronically Signed On 12-22-2024 15:46:15 CDT by Joseph Cam D.O.
--- OUTSIDE RECORDS SUMMARY | 2024-12-22 16:41 | XMS_ITS | Referral Summary ---
Author Organization [facility] Address [address] [place] [address] Care Team Providers Care Billet Header Name Role Phone No, Physician Primary Care Provider [phone] Unknown, Notinfile Unavailable Unavailable Allergies No known [...] on file Legal Sex Female 7:43 PM ASSEMBLY LINE UPHOLSTERER Gender Identity Not on file Sexual Orientation Not on file Last Filed Vital Signs Vital Sign Reading Time Taken Comments Blood Pressure 118/66 06/12/2023 6:40 AM ASSEMBLY LINE UPHOLSTERER Pulse 113 06/12/2023 6:40 AM ASSEMBLY LINE UPHOLSTERER Temperature 36.8 C (98.2 F) 06/12/2023 6:40 AM ASSEMBLY LINE UPHOLSTERER Respiratory Rate 18 06/12/2023 6:40 AM ASSEMBLY LINE UPHOLSTERER Oxygen Saturation 99% 06/12/2023 6:40 AM ASSEMBLY LINE UPHOLSTERER Inhaled Oxygen Concentration - - Weight 117.9 kg (260 lb) 06/12/2023 2:16 AM ASSEMBLY LINE UPHOLSTERER Height 167.6 cm (5' 6) 06/12/2023 2:16 AM ASSEMBLY LINE UPHOLSTERER Body Mass Index 41.97 06/12/2023 2:16 AM ASSEMBLY LINE UPHOLSTERER Plan of Treatment Not on file Insurance [facility] Member Subscriber Plan / Payer (Ef fective 2020-Present) Name:Wilder Holland Relation to Subscriber:Self Name:Wilder Holland Payer ID:[id number] (NAIC) Type:MEDICAID RISK OTHER [address] [facility] PLAN [facility] PLAN [facility] Care Teams Billet Header Relationship Specialty Start Date End Date No, Physician PCP - General 07/26/22 Unknown, Notinfile 07/26/22
--- OUTSIDE RECORDS SUMMARY | 2024-12-22 16:41 | XMS_ITS | CONTINUITY OF CARE DOCUMENT ---
Author Name loy granado Address Unknown Organization [facility] Address [address] [place] [address] [address] [place] [address] Phone [phone] Care Team Providers Care Emergency Medicine Specialist Name Role Phone Javier GEORGE, Richa Unavailable Keysha SEPTIC TANK SERVICE TECHNICIAN, Secil Unavailable Keysha SEPTIC TANK SERVICE TECHNICIAN, Secil Unavailable PROBLEMS Condition Status Date Provider [...] In-person encounter Office Visit Richa Herrera MD [place] Office ScreeningExposure to SARS-associated coronavirus;NEG SWAB and IGGChest pain--echo, routine stress nl, bnormal electrocardiogramShortness of breathAnxietyTobacco abuse--quit - In-person encounter Office Visit Goran Tran MD [place] Office ScreeningObesityExposure to SARS-associated coronavirus;NEG SWAB and [...] Payer name Policy type / Coverage type [place] red democrat ID [facility] [id number] ADVANCE DIRECTIVES Name Date DISCUSSED - NO DECISION MADE TREATMENT PLAN Date Name Performer [id number],S, Viet Ahkathleen i [id number],S, Vietalan Mathew i [id number],S, Vietalan Mathew i [id number],S, Viet Mathew i [id number],S, Viet Mathew i [id number],S, Vietalan Mathew i [id number],NGoran MD [id number],SGoran MD [id number],SGoran MD [id number],S,E GFR 132 N EG LIPASE N EG BRAIN AND ABD CT Goran Tran MD [id number],Goran Jim MD Cardiology Viet Augustin Cardiology Viet [...]
--- OUTSIDE RECORDS SUMMARY | 2024-12-22 16:41 | XMS_ITS | Clinical Summary ---
Author Organization [facility] Address [address] [place] [address] Care Team Providers Care Hospital Liaison Name Role Phone No, Physician Primary Care Provider [phone] Unknown, Notinfile Unavailable Unavailable Allergies No known [...] on file Legal Sex Female 7:43 PM INFORMATION TECHNOLOGY TECHNICIAN Gender Identity Not on file Sexual Orientation Not on file Obstetrics History Last Filed Vital Signs Vital Sign Reading Time Taken Comments Blood Pressure 118/66 06/12/2023 6:40 AM INFORMATION TECHNOLOGY TECHNICIAN Pulse 113 06/12/2023 6:40 AM INFORMATION TECHNOLOGY TECHNICIAN Temperature 36.8 C (98.2 F) 06/12/2023 6:40 AM INFORMATION TECHNOLOGY TECHNICIAN Respiratory Rate 18 06/12/2023 6:40 AM INFORMATION TECHNOLOGY TECHNICIAN Oxygen Saturation 99% 06/12/2023 6:40 AM INFORMATION TECHNOLOGY TECHNICIAN Inhaled Oxygen Concentration - - Weight 117.9 kg (260 lb) 06/12/2023 2:16 AM INFORMATION TECHNOLOGY TECHNICIAN Height 167.6 cm (5' 6) 06/12/2023 2:16 AM INFORMATION TECHNOLOGY TECHNICIAN Body Mass Index 41.97 06/12/2023 2:16 AM INFORMATION TECHNOLOGY TECHNICIAN Plan of Treatment Health Maintenance Due Date [...] exists HPV Vaccines Completed 12/30/2017, 02/25/2015 Insurance [facility] PLAN [facility] PLAN [facility] PLAN [facility] PLAN Care Teams Hospital Liaison Relationship Specialty Start Date End Date No, Physician PCP - General 07/26/22 Unknown, Notinfile 07/26/22
--- OUTSIDE RECORDS SUMMARY | 2024-12-22 16:41 | XMS_ITS | Clinical Summary ---
Author Organization [facility] Address [address] [place] [address] Phone Care Team Providers Care Safe And Vault Service Mechanic Name Role Phone Provider, None Primary Care [...] Insurance MEDICAID [place] Care Teams Safe And Vault Service Mechanic Relationship Specialty Start Date End Date Provider, None [place] PCP - General 01/10/22
--- NOTE | 2024-12-22 16:49 | ED.ARRPALP ---
HPI - Arrhythmia/Palpitations General Chief Complaint: Arrhythmia/Palpitations Stated Complaint: PALPATATIONS Time Seen by Provider: 12/22/24 15:36 History of Present Illness HPI narrative: Patient has a history of anxiety, and the last 2 weeks has had all several episodes where she felt her heart rate going very high, she would have chest pain difficulty breathing and feel like her hands and face were going numb, with so that it was anxiety attack but has follow-up to Cardiology. She started having some palpitations again earlier today so came in to be checked out. Symptoms now resolved Related Data Home Medications ?Medication ?Instructions ?Recorded ?Confirmed ?Last Taken ?Type multivitamin with iron 1 tablet PO DAILY 09/03/24 12/15/24 Unknown History Allergies Allergy/AdvReac Type Severity Reaction Status Date / Time No Known Allergies Allergy Verified 12/22/24 15:31 Review of Systems Review of Systems: All systems reviewed & are unremarkable except as noted in HPI and below PMFSH Past Medical History Medical History (Updated 12/22/24 @ 16:38 by Isela Stewart MD) Encounter for Nexplanon removal 08/11/2021 Insertion of Nexplanon (~07/11/20) Depression Anxiety Family History Family History Grandparent Acute myocardial infarction Lung cancer Hypertension Mother Depression Anxiety Grandparent Cancer Social History Social History (Updated 08/06/24 @ 08:37 by Yesenia Flores MA) Smoking status: Current some day smoker Tobacco type: e-cigarettes/vaping Alcohol intake: former Alcohol use details: occasional Substance use: never Substance use type: does not use Do You Feel Safe in your Home?: Yes Lack of Transportation: No Lack of Food: Never True Current Housing: I Have Housing Concerned About Future Housing: No Difficulty Paying Gas/Electric Bills: No Difficulty Paying for Meds: No Currently Unemployed: No Education: High School Diploma/GED Difficulty w/ Childcare or Family Care: No Living arrangements: other Additional living arrangements comments: not listed 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 EYES: EOMI, conjunctiva normal ENT: Hearing grossly intact LUNGS: Nonlabored breathing. HEART: [Regular rate and rhythm] ABD: [Soft], [nontender to palpation] EXT: Normal range of motion SKIN: [No rashes or lesions.] NEURO: [Alert and oriented x 3. No gross focal sensory or strength deficits.] PSYCH: Normal affect Course Vital Signs Vital signs: Vital Signs Temperature 98 F 12/22/24 15:38 Pulse Rate 87 12/22/24 15:38 Respiratory Rate 16 12/22/24 15:38 Blood Pressure 138/95 H 12/22/24 15:38 Pulse Oximetry 100 12/22/24 15:38 Oxygen Delivery Room Air 12/22/24 15:38 Temperature 98 F 12/22/24 15:38 Pulse Rate 90 12/22/24 15:51 Respiratory Rate 16 12/22/24 15:38 Blood Pressure 138/95 H 12/22/24 15:38 Pulse Oximetry 100 12/22/24 15:38 Oxygen Delivery Room Air 12/22/24 15:38 MDM - Arrhythmia/Palpitations MDM Narrative Medical decision making narrative: Patient with history of anxiety presenting here with symptoms consistent with panic attack. On exam patient is in no distress, well appearing, with normal vital signs. Already had multiple chest x-rays done of the last few days so with shared decision-making, will not get this today. EKG - 12-Lead: Performed at 1542. Interpreted by me. [Sinus rhythm]. Rate 86. [Normal] axis. TN-interval 134. QRS duration 97. QTc 447. [No ST segment elevation or depression]. [T-wave normal]. Impression: No EKG evidence of acute ischemia or dysrhythmia. Discussed with patient that if she is continuing to have these episodes of palpitations, and she has follow-up to Cardiology, who could potentially obtain a Holter monitor to monitor for any signs of arrhythmia which she is happy to do. with strict return precautions. Discharge Plan Discharge Clinical Impression: Heart palpitations Patient Disposition: Home Condition: Stable Instructions: Heart Palpitations (ED) Additional Instructions: Use the Holter monitor as instructed and follow up with the embossing press operator apprentice. You can always return to the emergency room for any further issues. Patient Language: Chinese Prescriptions: No Action multivitamin with iron Tablet 1 tablet PO DAILY escitalopram oxalate [Lexapro] 10 mg tablet 10 mg PO DAILY Qty: 90 0RF Other Ambulatory Orders: CA holter monitor 3-7 day (Routine) Timeframe: 1 Day Location: Determined by Patient Ordered By: Isela Stewart Follow-up/Referrals: Lilian Min APRN [Primary Care Provider] -
--- NOTE | 2024-12-29 15:37 | WPDHOLTEREM ---
Holter/Event Monitor Holter/Event Monitor Date of procedure: 12/22/24 Holter/Event Procedure: 3-7 Day Holter Monitor Indications: Palpitations Conclusion: 1. 3 days holter monitor on 12/22/24. 2. Underlying rhythm is sinus rhythm. HR range 46-142 bpm; average HR 73 bpm. HR at 46 bpm was on 12/25/24 at 2:22 pm. 3. There are rare premature supraventricular complexes. No supraventricular tachycardia. 4. There are rare premature ventricular complexes. No ventricular tachycardia. 5. No significant pauses greater than 3 seconds. 6. Patient reports 10 episodes of symptoms of heart racing, lightheadedness, uncomfortable, sick, fluttering, chest pain, shakey which demonstrate sinus rhythm, HR range 64-88 bpm with 1 PVC.
== END 2024-12-22 17:04 | disposition home or self-care (01) ==
LOC: ANHED 16:40
PROVIDERS: Emergency Provider Emergency Medicine; PCP Nurse Practitioner Adult Health
DX: R00.2 Palpitations (principal); F17.290 Nicotine dependence, other tobacco product, uncomplicated
CPT/HCPCS: 93005; 93242; 99284

== ENCOUNTER 2025-01-30 22:08 | Emergency (ER) | payer OTHER, SELFPAY ==
--- OUTSIDE RECORDS SUMMARY | 2025-01-30 22:10 | XMS_ITS | Referral Summary ---
Author Organization [facility] Address [address] [place] [address] Care Team Providers Care Filament Shaper Name Role Phone No, Physician Primary Care Provider [phone] Unknown, Notinfile Unavailable Unavailable Allergies No known [...] on file Legal Sex Female 7:43 PM SOFTWARE DEVELOPMENT SPECIALIST Gender Identity Not on file Sexual Orientation Not on file Last Filed Vital Signs Vital Sign Reading Time Taken Comments Blood Pressure 118/66 06/12/2023 6:40 AM SOFTWARE DEVELOPMENT SPECIALIST Pulse 113 06/12/2023 6:40 AM SOFTWARE DEVELOPMENT SPECIALIST Temperature 36.8 C (98.2 F) 06/12/2023 6:40 AM SOFTWARE DEVELOPMENT SPECIALIST Respiratory Rate 18 06/12/2023 6:40 AM SOFTWARE DEVELOPMENT SPECIALIST Oxygen Saturation 99% 06/12/2023 6:40 AM SOFTWARE DEVELOPMENT SPECIALIST Inhaled Oxygen Concentration - - Weight 117.9 kg (260 lb) 06/12/2023 2:16 AM SOFTWARE DEVELOPMENT SPECIALIST Height 167.6 cm (5' 6) 06/12/2023 2:16 AM SOFTWARE DEVELOPMENT SPECIALIST Body Mass Index 41.97 06/12/2023 2:16 AM SOFTWARE DEVELOPMENT SPECIALIST Plan of Treatment Not on file Insurance [facility] Member Subscriber Plan / Payer (Ef fective 2020-Present) Name:Wilder Holland Relation to Subscriber:Self Name:Wilder Holland Payer ID:[id number] (NAIC) Type:MEDICAID RISK OTHER [address] [facility] PLAN [facility] PLAN [facility] Care Teams Filament Shaper Relationship Specialty Start Date End Date No, Physician PCP - General 07/26/22 Unknown, Notinfile 07/26/22
--- OUTSIDE RECORDS SUMMARY | 2025-01-30 22:10 | XMS_ITS | Clinical Summary ---
Author Organization [facility] Address [address] [place] [address] Phone Care Team Providers Care Data Conversion Analyst Name Role Phone Provider, None Primary Care [...] Insurance MEDICAID [place] Care Teams Data Conversion Analyst Relationship Specialty Start Date End Date Provider, None [place] PCP - General 01/10/22
--- OUTSIDE RECORDS SUMMARY | 2025-01-30 22:10 | XMS_ITS | Clinical Summary ---
Author Organization [facility] Address [address] [place] [address] Care Team Providers Care Compressor Technician Name Role Phone No, Physician Primary Care Provider [phone] Unknown, Notinfile Unavailable Unavailable Allergies No known [...] on file Legal Sex Female 7:43 PM STUDENT MINISTRY PASTOR Gender Identity Not on file Sexual Orientation Not on file Obstetrics History Last Filed Vital Signs Vital Sign Reading Time Taken Comments Blood Pressure 118/66 06/12/2023 6:40 AM STUDENT MINISTRY PASTOR Pulse 113 06/12/2023 6:40 AM STUDENT MINISTRY PASTOR Temperature 36.8 C (98.2 F) 06/12/2023 6:40 AM STUDENT MINISTRY PASTOR Respiratory Rate 18 06/12/2023 6:40 AM STUDENT MINISTRY PASTOR Oxygen Saturation 99% 06/12/2023 6:40 AM STUDENT MINISTRY PASTOR Inhaled Oxygen Concentration - - Weight 117.9 kg (260 lb) 06/12/2023 2:16 AM STUDENT MINISTRY PASTOR Height 167.6 cm (5' 6) 06/12/2023 2:16 AM STUDENT MINISTRY PASTOR Body Mass Index 41.97 06/12/2023 2:16 AM STUDENT MINISTRY PASTOR Plan of Treatment Health Maintenance Due Date [...] exists HPV Vaccines Completed 12/30/2017, 02/25/2015 Insurance [facility] PLAN [facility] PLAN [facility] PLAN [facility] PLAN Care Teams Compressor Technician Relationship Specialty Start Date End Date No, Physician PCP - General 07/26/22 Unknown, Notinfile 07/26/22
--- OUTSIDE RECORDS SUMMARY | 2025-01-30 22:11 | XMS_ITS | Data Portability ---
Author Organization [facility] Address [address] [place] [address] Assessment No assessment recorded. Plan of Treatment Reminders Order Date Submit Date Provider Last Modified By Organization Details Last Modified Time Details Appointments U/S F/U 2024 09:00A Megha TIJERINA MD Not available Not available Not available Lab 17-hydrox yprogestPRISCILLA vallecillo, serum 2024 025 [facility] (Lab), [address] [place], [address], 01/14/2025 04:30:40 dhea-sulf ate, serum 2024 025 [facility] (Lab), [address] [place], [address], 01/14/2025 04:30:37 estradiol , serum 2024 025 [facility] (Lab), [address] [place], [address], 01/14/2025 04:30:38 FSH (follicle -stimulat ing hormone), serum 2024 025 [facility] (Lab), [address] [place], [address], 01/14/2025 04:30:38 HbA1c (hemoglob in A1c), blood 2024 025 [facility] (Lab), [address] [facility] [place], [address], 01/14/2025 04:30:39 lh (luteiniz ing hormone), serum 2024 025 [facility] (Lab), [address] [place], [address], 01/14/2025 04:30:39 progester one, serum 2024 025 [facility] (Lab), [address] [facility], [place], [address], 01/14/2025 04:30:37 prolactin , serum 2024 025 [facility] (Lab), [address] [facility], [place], [address], 01/14/2025 04:30:38 TSH, serum or plasma 2024 025 [facility] (Lab), [address] [place], [address], 01/14/2025 04:30:38 testoster one free/test osterone total, ratio, serum 2024 025 [facility] (Lab), [address] [place], [address], 01/14/2025 04:30:39 test, urine 2024 025 [email or web address] [facility], [address], [address], [place], [address], 01/06/2025 10:17:13 CBC w/ diff 2024 025 [facility] (Lab), [address] [place], [address], 01/13/2025 04:02:47 urinalysi s, dipstick 2024 025 [email or web address] [facility], [address], [place], [address], 01/06/2025 11:04:32 Referral None recorded. Procedures None recorded. Surgeries None recorded. Imaging US, pelvis [email or web address], [address], [place], [address], 01/13/2025 09:56:35 US, transvagi nal [email or web address], [address], [place], [address], 01/13/2025 09:56:35 US, pelvis, complete 2024 025 ELY [facility], [address], [place], [address], 01/14/2025 04:12:26 Medication Orders progester one micronize d 200 mg capsule 2024 025 Not available 01/08/2025 10:56:16 Patient TargetsNo targets recorded. Patient InstructionsNo instructions recorded. Reason for Referral None Reported. Results Created Date Observation Date Name Description Value Unit Range Abnormal Flag Note LastModifiedBy Organization Detail LastModifiedTime 01/07/2001/06/2025 PROLA CTIN prolactin, total 29.40 NG/mL 4.79-2 3.30 high This assay was perfo rmed using [employer] ratio n reage nts and test kits. Value s obtai daryl with other assay metho ds or kits canno t be used inter goode eably . Not Available [facility] (Lab) [address], [place], [address], 01/14/2025 04:30:37 01/07/2001/06/2025 urina lysis , dipst ick Leukocytes - Not Available Chai d[facility] [address], [place], [address], 01/06/2025 11:03:57 01/07/20 25 01/06/2025 urina lysis , dipst ick Nitrite - Not Available [facility] [address], [place], [address], 01/06/2025 11:03:57 01/07/20 25 01/06/2025 urina lysis , dipst ick Urobilinogen - Not Available [facility] [address], [place], [address], 01/06/2025 11:03:57 01/07/20 25 01/06/2025 urina lysis , dipst ick Protein trace Not Available [facility] [address], [place], [address], 01/06/2025 11:03:57 01/07/20 25 01/06/2025 urina lysis , dipst ick pH 8 Not Available [facility] [address], [place], [address], 01/06/2025 11:03:57 01/07/20 25 01/06/2025 urina lysis , dipst ick Blood +++ Not Available [facility] [address], [place], [address], 01/06/2025 11:03:57 01/07/20 25 01/06/2025 urina lysis , dipst ick Specific [place] 1.000 Not Available [facility] [address], [place], [address], 01/06/2025 11:03:57 01/07/20 25 01/06/2025 urina lysis , dipst ick Ketone - Not Available [facility] [address], [place], [address], 01/06/2025 11:03:57 01/07/20 25 01/06/2025 urina lysis , dipst ick Bilirubin - Not Available [facility] [address], [place], [address], 01/06/2025 11:03:57 01/07/20 25 01/06/2025 urina lysis , dipst ick Glucose - Not Available [facility] [address], [place], [address], 01/06/2025 11:03:57 01/07/20 25 01/06/2025 urina lysis , dipst ick Appearance clear Not Available [facility] [address], [place], [address], 01/06/2025 11:03:57 01/07/20 25 01/06/2025 urina lysis , dipst ick Color dark yellow Not Available [facility] [address], [place], [address], 01/06/2025 11:03:57 01/07/20 25 01/06/2025 pregn lakshmi test, urine HCG negati ve Not Available [facility] [address], [place], [address], 01/06/2025 10:16:12 01/26/20 25 01/25/2025 PROLA CTIN prolactin, total 41.50 NG/mL 4.79-2 3.30 high This assay was perfo rmed using [employer] ratio n reage nts and test kits. Value s obtai daryl with other assay metho ds or kits canno t be used inter goode eably . Not Available [facility] (Lab) [address], [place], [address], 01/26/2025 06:49:33 01/13/20 25 01/12/2025 US, modesto s No observ ation record ed. [email or web address] [facility] [address], [place], [address], 01/12/2025 13:33:28 01/13/20 25 01/12/2025 US, trans [email or web address] al No observ ation record ed. [email or web address] [facility] [address], [place], [address], 01/12/2025 13:33:37 01/13/20 25 01/12/2025 US, [place] s No observ ation record ed. [email or web address] [address], [place], [address], 01/14/2025 22:45:48 Result Notes None recorded. Medical Equipment None Reported. Medications Name Sig Start Date Stop Date Status Note LastModified by Organization Details LastModified Time cetirizine 10 mg tablet TAKE 1 TABLET BY MOUTH EVERY DAY 01/06 completed Not Available Not Available Not Available progesterone micronized 200 mg capsule Take 1 capsule every day by oral route for 14 days. 2024 active Not Available Not Available Not Avai lable fluticasone propionate 50 mcg/actuatio n nasal spray,suspen arina TAKE 1-2 SPRAYS EACH NOSTRIL ONCE A DAY 01/06 completed Not Available Not Available Not Available amoxicillin 875 mg-potassium clavulanate 125 mg tablet TAKE 1 TABLET BY MOUTH TWICE A DAY FOR 7 DAYS 01/06 completed Not Available Not Available Not Available Vitals Date Recorded Body height Body mass index (BMI) Body weight Systolic And Diastolic Provider Name and Address Organization Details Last Updated DateTime 01/06/2025 167.64 cm 43.6 kg/m2 449864.94 g 110/72 mm[Hg] Jacquelin Pñea [facility] 01/06/2025 09:51:54 Social History Question Answer Notes LastModified by Organizat ion Details LastModified Time Tobacco Smoking Status Never Smoker Jacquelin Peña [facility] 01/06/2025 09:48:23 Are You Blind Or Do You Have Difficulty Seeing? No [email or web address] Information n ot available 01/06/2025 What Is Your Level Of Caffeine Consumption? Moderate [email or web address] Information not available 01/06/2025 In The 14 Days Before Symptom Onset, Have You Had Close Contact With A Laboratory-confirm ed COVID-19 While That Case Was Ill? No [email or web address] Information n ot available 01/06/2025 In The 14 Days Before Symptom Onset, Have You Had Close Contact With A Person Who Is Under Investigation For COVID-19 While That Person Was Ill? No [email or web address] Information not available 01/06/2025 Have You Been To An Area Known To Be High Risk For COVID-19? No [email or web address] Information not available 01/06/2025 Are You Deaf Or Do You Have Serious Difficulty Hearing? No [email or web address] Information not available 01/06/2025 What Type Of Diet Are You Following? REGULAR [email or web address] Information n ot available 01/06/2025 What Is The Highest Grade Or Level Of School You Have Completed Or The Highest Degree You Have Received? [id number] [email or web address] Information not available 01/06/2025 Do You Use Protection During Sex? No [email or web address] Information not available 01/06/2025 Do You Use Your Seat Belt Or Car Seat Routinely? Yes [email or web address] Information not available 01/06/2025 Are You Sexually Active? Yes [email or web address] Information not available 01/06/2025 Do You Have Smoke And Carbon Monoxide Detectors In Your Home? Yes [email or web address] Information not available 01/06/2025 Do You Use Sunscreen Routinely? No [email or web address] Information not available 01/06/2025 Do You Have Difficulty Walking Or Climbing Stairs? No [email or web address] Information not available 01/06/2025 Sex: Unknown Functional Status Question Answer Note LastModified by Organizat ion Details LastModified Time What is your level of alcohol consumption? Occasional Information not available 01/06/2025 Are you currently employed? Yes [email or web address] Information not available 01/06/2025 Are you able to walk? [email or web address] Information not available 01/06/2025 Are you able to care for yourself? 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 No [email or web address] Information not available 01/06/2025 What is your exercise level? Moderate [email or web address] Information not available 01/06/2025 Mental Status Question Answer Note LastModified by Organization D etails LastModified Time Do you feel stressed (tense, restless, nervous, or anxious, or unable to sleep at night)? [id number] [email or web address] Information not available 01/06/2025 Family History Relationship Description Onset Age of this Age Resolved Age Notes LastModified by Organization Details LastModified Time Maternal Uncle Malignant tumor of colon Not available 2024 09:52:56 Maternal Grandmother Heart disease [email or web address] Not available 2024 09:53:09 Maternal Grandfather Diabetes mellitus Not available 2024 09:53:17 Medical History Condition Response Allergies (Food, seasonal, environmental ) N Other N Blood Transfusion N Drug/Latex Allergies/Reactions N Breast Cancer N Dermatologic Disorders N Lung Disease N Defects or Inherited Disease N Breast Problem N Gestational Diabetes N Hematologic disorders N Anesthesia Complications N History of STI N Deep Vein Thrombosis N Polycystic ovary syndrome N Anxiety Disorder N Autoimmune disease N Arthritis N Infertility N Polyps N Acid Reflux (GERD) N History of abnormal pap N Cancer N Stroke N Varicosities N Neurologic/Epilepsy N Endometriosis N High Cholesterol N Headaches N Fibromyalgia N Kidney Disease N Heart Problems N Kidney or Bladder Problems N Thyroid Problems N GI Problems N Eating Disorder N Anemia Y Art (IVF or FET) N Psychiatric Illness N Ovarian Cancer N Diabetes N Pulmonary (TB, Asthma) N Hepatitis/Liver Disease N No Past Medical History N Eczema N Urinary Tract Infection N Abuse/Domestic Violence N Asthma N Trauma/Violence N Depression/ depression N Heart Disease N Pre-Eclampsia N Hypertension N Osteoporosis N Thrombophilias N Gynecological History Statement/Question Response Flow Heavy Date of LMP 12/11/2024 Was last menstrual period normal N STIs/STDs N HPV Vaccine Y Duration of Flow (days) 27 Current Control Method None Are cycles usually normal Y Sexually Active? Y Menses Monthly Y Sexual Problems? N LMP Definite Obstetrics History GPAL:G 0 P 0 0 0 0 Past Encounters Encounter ID Performer Location Encounter Start Date Encounter Closed Date Diagnosis/Indication Diagnosis SNOMED-CT Code Diagnosis ICD10 Code Diagnosis Note [id number] Antony Dumont MD [facility] [address] [address] 01/06/2025 09:27:03 01/06/2025 10:47:29 Long menstrual cycle 135182356 N92.1 The patient and I discussed the various causes of abnormal uterine bleeding, including polyps, fibroids, hyperplasi a, atypia, anovulatio n, etc.Discus sed typical evaluation with labs and pelvic US. Discussed progestero ne 200 mg PO nightly x 14 days to help stop bleeding in the meantime.P elvic ultrasound ordered, labs ordered.Ag simms will follow-up if bleeding irregulari ty persists; patient is to contact office or go to nearest ED/Urgent care if fever >/= 100.1, pain, excessive bleeding (soaking pads < 1 hr), unusual drainage or swelling in area of concern; or experienci ng worsening sx's or new onset of concerning sx's. Understand ing verbalized . All questions answered to patient satisfacti on.RTO for ultrasound f/u and pelvic exam/pap smear. [id number] Antnoy Dumont MD [facility] [address] [address] 01/12/2025 12:12:35 01/12/2025 13:53:27 Long menstrual cycle 161607089 N92.1 Health Concerns Section Related Observation LastModified by Organization Detai ls LastModified Time None Recorded Concern Status LastModified by Organization Details LastModified Time None Recorded Advance Directives Directive None Recorded Payers Insurance Date Sequence Insurance Name Policy Number Policy Caban Covered Member ID Caban Member ID Guarantor Name 01/18/2025 1 [employer] [id number] Rosay Adcox [id number] Rosay Adcox Notes Date Note Type Note Provider Name and Address Organization Details Recorded Time 01/06/2025 text/html 24 y/o female presents to establish care and to discuss prolonged menstruation. Patient states that she has been bleeding for 26 days with moderate to heavy flow. Patient reports large blood clots in pad. Patient reports intermittent dizziness. 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 Patient states that cycles q28 days, last 6 days with moderate flow.Patient denies history of abnormal bleeding, PCOS, or known MANAGER PROGRESSIVE CARE abnormalities.Antonia ent states that the only new recent change has been starting escitalopram December 08, but patient states that she stopped the medication after 4 days since it made her nauseous. Neg pain of abd/pelvis/flankNe g urinary sx'sNeg GI sx'sNeg N/V/F/C/DNeg Vag d/c, odor, irritation, itching Jacquelin monsivais, [facility] 01/06/2025 11:05:12 OBGyn Episode No OBEpisode recorded.
[2025-01-30 22:14] VITALS: BP 149/85; PULSE 94; RESP 16; TEMP 36.7; O2SAT 100
--- OUTSIDE RECORDS SUMMARY | 2025-01-30 22:41 | XMS_ITS | Referral Summary ---
Author Organization [facility] Address [address] [place] [id number] Care Team Providers Care Construction Scheduler Name Role Phone No, Physician Primary Care Provider [phone] Unknown, Notinfile Unavailable Unavailable Allergies No known [...] on file Legal Sex Female 7:43 PM WEED SPRAYER Gender Identity Not on file Sexual Orientation Not on file Last Filed Vital Signs Vital Sign Reading Time Taken Comments Blood Pressure 118/66 06/12/2023 6:40 AM WEED SPRAYER Pulse 113 06/12/2023 6:40 AM WEED SPRAYER Temperature 36.8 C (98.2 F) 06/12/2023 6:40 AM WEED SPRAYER Respiratory Rate 18 06/12/2023 6:40 AM WEED SPRAYER Oxygen Saturation 99% 06/12/2023 6:40 AM WEED SPRAYER Inhaled Oxygen Concentration - - Weight 117.9 kg (260 lb) 06/12/2023 2:16 AM WEED SPRAYER Height 167.6 cm (5' 6) 06/12/2023 2:16 AM WEED SPRAYER Body Mass Index 41.97 06/12/2023 2:16 AM WEED SPRAYER Plan of Treatment Not on file Insurance [facility] Member Subscriber Plan / Payer (Ef fective 2020-Present) Name:Wilder Holland Relation to Subscriber:Self Name:Wilder Holland Payer ID:[id number] (NAIC) Type:MEDICAID RISK OTHER [address] [facility] PL[facility] PL[facility] Care Teams Construction Scheduler Relationship Specialty Start Date End Date No, Physician PCP - General 07/26/22 Unknown, Notinfile 07/26/22
--- OUTSIDE RECORDS SUMMARY | 2025-01-30 22:41 | XMS_ITS | Clinical Summary ---
Author Organization [facility] Address [address] [place] [address] Phone Care Team Providers Care Tool Mechanic Name Role Phone Provider, None Primary [...] Insurance MEDICA[place] Care Teams Tool Mechanic Relationship Specialty Start Date End Date Provider, None [place] PCP - General 01/10/22
--- OUTSIDE RECORDS SUMMARY | 2025-01-30 22:41 | XMS_ITS | Clinical Summary ---
Author Organization [facility] Address [address] [place] [id number] Care Team Providers Care Health And Wellness Instructor Name Role Phone No, Physician Primary Care Provider [phone] Unknown, Notinfile Unavailable Unavailable Allergies No known [...] on file Legal Sex Female 7:43 PM PRODUCT MANAGENT INTERN Gender Identity Not on file Sexual Orientation Not on file Obstetrics History Last Filed Vital Signs Vital Sign Reading Time Taken Comments Blood Pressure 118/66 06/12/2023 6:40 AM PRODUCT MANAGENT INTERN Pulse 113 06/12/2023 6:40 AM PRODUCT MANAGENT INTERN Temperature 36.8 C (98.2 F) 06/12/2023 6:40 AM PRODUCT MANAGENT INTERN Respiratory Rate 18 06/12/2023 6:40 AM PRODUCT MANAGENT INTERN Oxygen Saturation 99% 06/12/2023 6:40 AM PRODUCT MANAGENT INTERN Inhaled Oxygen Concentration - - Weight 117.9 kg (260 lb) 06/12/2023 2:16 AM PRODUCT MANAGENT INTERN Height 167.6 cm (5' 6) 06/12/2023 2:16 AM PRODUCT MANAGENT INTERN Body Mass Index 41.97 06/12/2023 2:16 AM PRODUCT MANAGENT INTERN Plan of Treatment Health Maintenance Due Date [...] exists HPV Vaccines Completed 12/30/2017, 02/25/2015 Insurance [facility] PLAN [facility] PLAN [facility] PLAN [facility] PLAN Care Teams Health And Wellness Instructor Relationship Specialty Start Date End Date No, Physician PCP - General 07/26/22 Unknown, Notinfile 07/26/22
[2025-01-30] MEDS: ACETAMINOPHEN 500 MG TABLET 1000 MG PO (23:26)
--- NOTE | 2025-01-30 23:42 | ED.HA ---
HPI - Headache General Chief Complaint: Headache Stated Complaint: headache Time Seen by Provider: 01/30/25 22:18 Source: patient Mode of arrival: ambulatory Limitations: no limitations History of Present Illness HPI Narrative: 24 y/o WF in the ED for c/o left-sided facial pain and RODAS X1 day. Pt states feeling a tingling pain to left forehead into the top of her head. Pt states it feels like she is going to start a migraine and then it goes away. Pt states she has hx of a singular migraine, feeling similar to today. Pt has taken no OTC med for pain. States when she has had a migraine or RODAS, she lays down and it gets better. Pt has hx of anxiety, on Lexapro. Related Data Home Medications ?Medication ?Instructions ?Recorded ?Confirmed ?Last Taken ?Type multivitamin with iron 1 tablet PO DAILY 09/03/24 01/05/25 Unknown History Allergies Allergy/AdvReac Type Severity Reaction Status Date / Time No Known Allergies Allergy Verified 01/30/25 22:19 Review of Systems Review of Systems: CONSTITUTIONAL: Denies fever, chills, or sweats. EYES: Denies visual changes, redness, or discharge. ENT: Denies rhinorrhea, congestion, sore throat, or otalgia. CARDIOVASCULAR: Denies chest pain, palpitations, or edema. RESPIRATORY: Denies cough or dyspnea. GASTROINTESTINAL: Denies abdominal pain, nausea, vomiting, or diarrhea. GENITOURINARY: Denies dysuria or hematuria. SKIN: Denies rash or itching. MUSCULOSKELETAL: Denies back pain, joint pain, or myalgia. NEUROLOGIC: Endorses headache. Denies numbness, or weakness. PSYCHIATRIC: Denies anxiety or depression. [facility] Past Medical History Medical History Encounter for Nexplanon removal 08/11/2021 Insertion of Nexplanon (~07/11/20) Depression Anxiety Family History Family History Grandparent Acute myocardial infarction Lung cancer Hypertension Mother Depression Anxiety Grandparent Cancer Social History Social History (Updated 08/06/24 @ 08:37 by Yesenia Flores MA) Smoking status: Former smoker Tobacco type: e-cigarettes/vaping Alcohol intake: former Alcohol use details: occasional Substance use: never Substance use type: does not use Do You Feel Safe in your Home?: Yes Lack of Transportation: No Lack of Food: Never True Current Housing: I Have Housing Concerned About Future Housing: No Difficulty Paying Gas/Electric Bills: No Difficulty Paying for Meds: No Currently Unemployed: No Education: High School Diploma/GED Difficulty w/ Childcare or Family Care: No Living arrangements: other Additional living arrangements comments: not listed 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 HEAD: Normocephalic, atraumatic. EYES: PERRLA and EOMI. ENT: Nares clear, no rhinorrhea or epistaxis. Mucous membranes moist. NECK: Supple. CHEST: Clear to auscultation. No respiratory distress. HEART: Regular rate and rhythm. No murmur heard. Normal peripheral pulses. ABDOMEN: Soft, nontender, nondistended, normal active bowel sounds. EXTREMITIES: Normal range of motion. No edema. SKIN: Warm, dry, no rash. NEURO: No focal deficits. Alert and oriented x3. CN II-XII intact and normal. Negative pain on palpation of the scalp and tenporal artery PSYCH: Normal mood and affect. Course Vital Signs Vital signs: Vital Signs Temperature 36.7 C 01/30/25 22:14 Pulse Rate 94 01/30/25 22:14 Respiratory Rate 16 01/30/25 22:14 Blood Pressure 149/85 H 01/30/25 22:14 Pulse Oximetry 100 01/30/25 22:14 Oxygen Delivery Room Air 01/30/25 22:14 Temperature 36.7 C 01/30/25 22:14 Pulse Rate 94 01/30/25 22:14 Respiratory Rate 16 01/30/25 22:14 Blood Pressure 149/85 H 01/30/25 22:14 Pulse Oximetry 100 01/30/25 22:14 Oxygen Delivery Room Air 01/30/25 22:14 MDM - Headache MDM Narrative Medical decision making narrative: Patient has normal physical exam. Patient given Tylenol in the department and pain has subsided. Patient to be discharged with primary care follow-up. Differential Diagnosis Differential diagnosis: Likely migraine, tension headache and other (temporal arteritis) Discharge Plan Discharge Clinical Impression: Anxiety Headache Qualifiers: Headache type: unspecified Headache chronicity pattern: unspecified pattern Intractability: not intractable Qualified Code(s): R51.9 - Headache, unspecified Patient Disposition: Home Condition: Stable Instructions: Antibiotic Form, Acute Headache (ED) Additional Instructions: Take [id number] Tylenol and Motrin for headache. Discussed use Excedrin [id number] or migraine as well as increasing water intake. Follow up primary care doc. return to the ED if symptoms persist, worsen. Patient Language: Korean Prescriptions: No Action multivitamin with iron Tablet 1 tablet PO DAILY escitalopram oxalate [Lexapro] 10 mg tablet 10 mg PO DAILY Qty: 90 0RF Follow-up/Referrals: Lilian Min APRN [Primary Care Provider] - 1 Week
== END 2025-01-31 00:21 | disposition home or self-care (01) ==
PROVIDERS: Emergency Provider Registered Nurse Emergency; PCP Nurse Practitioner Adult Health
DX: R51.9 Headache, unspecified (principal); F41.9 Anxiety disorder, unspecified; F32.A Depression, unspecified; Z87.891 Personal history of nicotine dependence; Z79.899 Other long term (current) drug therapy
CPT/HCPCS: 99283; A9270

== ENCOUNTER 2025-02-16 08:29 | Outpatient (CLI) | payer OTHER, SELFPAY ==
--- NOTE | 2025-02-16 08:33 | EST_ITS ---
Patient Info Name: Wilder Holland Age: 24 years : 2000 Gender: Female Ht: 66 in Wt: 270 lbs BSA: 2.45 m2 Exam Date: 02/16/2025 8:33 AM Patient Status: O Admit Date: 02/16/2025 Exam Type: CA stress test treadmill A treadmill exercise stress test was performed. Staff Attending Provider: Joseph Cam DO Exercise Technologist: Danika Perez Exercise Physician: Joseph Cam DO Summary 1. 1. Negative Juliano exercise stress test for ischemic ST changes by ECG criteria. 2. 2. Reduced functional capacity, achieving 8.9 METs of workload. 3. 3. Appropriate HR response to exercise. 4. 4. Appropriate HR recovery at 1 minute post exercise. 5. 5. No imaging with stress testing. 6. 6. Patient informed of the above results. Protocol: Juliano Stress ECG Details Stage: REST Duration (min): 1 min : 0 sec Speed (mph): 0.0 Grade (%): 0 HR (bpm): 67 SBP (mmHg): 103 DBP (mmHg): 46 METS: --- Stage: REST Duration (min): 3 min : 56 sec Speed (mph): 0.0 Grade (%): 0 HR (bpm): 87 SBP (mmHg): 103 DBP (mmHg): 46 METS: --- Stage: STAGE 1 Duration (min): 1 min : 0 sec Speed (mph): 1.7 Grade (%): 10 HR (bpm): 128 SBP (mmHg): 103 DBP (mmHg): 46 METS: --- Stage: STAGE 1 Duration (min): 2 min : 0 sec Speed (mph): 1.7 Grade (%): 10 HR (bpm): 146 SBP (mmHg): 103 DBP (mmHg): 46 METS: --- Stage: STAGE 1 Duration (min): 3 min : 0 sec Speed (mph): 1.7 Grade (%): 10 HR (bpm): 146 SBP (mmHg): 153 DBP (mmHg): 58 METS: --- Stage: STAGE 2 Duration (min): 1 min : 0 sec Speed (mph): 2.5 Grade (%): 12 HR (bpm): 160 SBP (mmHg): 153 DBP (mmHg): 58 METS: --- Stage: STAGE 2 Duration (min): 2 min : 0 sec Speed (mph): 2.5 Grade (%): 12 HR (bpm): 169 SBP (mmHg): 152 DBP (mmHg): 57 METS: --- Stage: STAGE 2 Duration (min): 3 min : 0 sec Speed (mph): 2.5 Grade (%): 12 HR (bpm): 172 SBP (mmHg): 152 DBP (mmHg): 57 METS: --- Stage: STAGE 3 Duration (min): 1 min : 0 sec Speed (mph): 3.4 Grade (%): 14 HR (bpm): 185 SBP (mmHg): 205 DBP (mmHg): 67 METS: --- Stage: STAGE 3 Duration (min): 1 min : 0 sec Speed (mph): 3.4 Grade (%): 14 HR (bpm): 185 SBP (mmHg): 205 DBP (mmHg): 67 METS: --- Stage: RECOVERY Duration (min): 0 min : 59 sec Speed (mph): 0.0 Grade (%): 0 HR (bpm): 155 SBP (mmHg): 168 DBP (mmHg): 55 METS: --- Stage: RECOVERY Duration (min): 1 min : 59 sec Speed (mph): 0.0 Grade (%): 0 HR (bpm): 126 SBP (mmHg): 168 DBP (mmHg): 55 METS: --- Stage: RECOVERY Duration (min): 2 min : 59 sec Speed (mph): 0.0 Grade (%): 0 HR (bpm): 105 SBP (mmHg): 148 DBP (mmHg): 58 METS: --- Stage: RECOVERY Duration (min): 3 min : 59 sec Speed (mph): 0.0 Grade (%): 0 HR (bpm): 102 SBP (mmHg): 148 DBP (mmHg): 58 METS: --- Stage: RECOVERY Duration (min): 4 min : 59 sec Speed (mph): 0.0 Grade (%): 0 HR (bpm): 101 SBP (mmHg): 129 DBP (mmHg): 56 METS: --- Stage: RECOVERY Duration (min): 5 min : 59 sec Speed (mph): 0.0 Grade (%): 0 HR (bpm): 99 SBP (mmHg): 129 DBP (mmHg): 56 METS: --- Stage: RECOVERY Duration (min): 6 min : 50 sec Speed (mph): 0.0 Grade (%): 0 HR (bpm): 100 SBP (mmHg): 119 DBP (mmHg): 55 METS: --- Rest HR: 87 bpm Peak HR: 185 bpm Rest Sys BP: 103 mmHg Peak Sys BP: 205 mmHg Max Pred HR: 198 bpm % Max Pred HR: 93 % Target HR: 168 bpm Max RPP: 37,925 bpm*mmHg Maxwell Score: -9 Termination Reason: Reached target heart rate or workload Cardiac Symptoms: Shortness of breath Max ST Seg Deviation: -3.20 mm Total Time: 7 min : 0 sec Rest Barber BP: 46 mmHg Peak Barber BP: 67 mmHg Angina Score: None Total METS: 8.9 Resting ECG Sinus rhythm. Stress ECG No ST changes. Arrhythmias None. Report Signatures
--- OUTSIDE RECORDS SUMMARY | 2025-02-16 08:35 | XMS_ITS | Clinical Summary ---
Author Organization [facility] Address [address] [place] [address] Phone Care Team Providers Care Skiver Uppers Or Linings Name Role Phone Provider, None Primary Care [...] Insurance MEDICA[place] Care Teams Skiver Uppers Or Linings Relationship Specialty Start Date End Date Provider, None [place] PCP - General 01/10/22
--- OUTSIDE RECORDS SUMMARY | 2025-02-16 08:35 | XMS_ITS | Clinical Summary ---
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 Gender Identity Not on file Sexual Orientation Not on file Obstetrics History Last Filed Vital Signs Vital Sign Reading Time Taken Comments Blood Pressure 118/66 06/12/2023 6:40 AM SEMI AUTOMATIC SEWING MACHINE OPERATOR Pulse 113 06/12/2023 6:40 AM SEMI AUTOMATIC SEWING MACHINE OPERATOR Temperature 36.8 C (98.2 F) 06/12/2023 6:40 AM SEMI AUTOMATIC SEWING MACHINE OPERATOR Respiratory Rate 18 06/12/2023 6:40 AM SEMI AUTOMATIC SEWING MACHINE OPERATOR Oxygen Saturation 99% 06/12/2023 6:40 AM SEMI AUTOMATIC SEWING MACHINE OPERATOR Inhaled Oxygen Concentration - - Weight 117.9 kg (260 lb) 06/12/2023 2:16 AM SEMI AUTOMATIC SEWING MACHINE OPERATOR Height 167.6 cm (5' 6) 06/12/2023 2:16 AM SEMI AUTOMATIC SEWING MACHINE OPERATOR Body Mass Index 41.97 06/12/2023 2:16 AM SEMI AUTOMATIC SEWING MACHINE OPERATOR Plan of Treatment Health Maintenance Due Date [...] 11/12/2007, 01/25/2006, Additional history exists Influenza Vaccine (#1) 2025 Hepatitis B Screening Completed 2002 , 2002, 2002 Pneumococcal vaccine <65 Completed 004, 02/06/2003, 2002, Additional history exists HPV Vaccines Completed 12/30/2017, 02/25/2015 Insurance [facility] Care Teams Stone Polisher Relationship Specialty Start Date End Date No, Physician PCP - General 07/26/22 Unknown, Notinfile 07/26/22
--- OUTSIDE RECORDS SUMMARY | 2025-02-16 08:35 | XMS_ITS | Data Portability ---
Author Organization [facility] Address [address] [place] [address] Assessment No assessment recorded. Plan of Treatment Reminders Order Date Submit Date Provider Last Modified By Organization Details Last Modified Time Details Appointments None recorded. Lab 17-hydroxyp rogesterone , QN, serum 2024 025 [facility] (Lab), [address], [place], [address], 5 04:30:40 dhea-sulfat e, serum 2024 025 [facility] (Lab), [address], [place], [address], 5 04:30:37 estradiol, serum 2024 025 [facility] (Lab), [address], [place], [address], 5 04:30:38 FSH (follicle-s timulating hormone), serum 2024 025 [facility] (Lab), [address] [place], [address], 5 04:30:38 HbA1c (hemoglobin A1c), blood 2024 025 [facility] (Lab), [address] [place], [address], 5 04:30:39 lh (luteinizin g hormone), serum 2024 025 [facility] (Lab), [address], [place], [address], 5 04:30:39 progesteron e, serum 2024 025 [facility] (Lab), [address], [place], [address], 5 04:30:37 prolactin, serum 2024 025 [facility] (Lab), [address], [place], [address], 5 04:30:38 TSH, serum or plasma 2024 025 [facility] (Lab), [address], [place], [address], 5 04:30:38 testosteron e free/testos terone total, ratio, serum 2024 025 [facility] (Lab), [address], [place], [address], 5 04:30:39 test, urine 2024 025 [email or web address] [address], [place], [address], 5 10:17:13 CBC w/ diff 2024 025 [facility] (Lab), [address] [place], [address], 5 04:02:47 urinalysis, dipstick 2024 025 [email or web address] [address], [address], [place], [address], 11:04:32 Referral None recorded. Procedures None recorded. Surgeries None recorded. Imaging MRI, brain + pituitary, w/wo contrast 2024 025 [facility], [address] [facility], [place], [address], 04:02:17 US, pelvis 2024 [address], [address], [place], [address], 09:56:35 US, transvagina l [address], [place], [address], 09:56:35 US, pelvis, complete 2024 025 [facility], [address], [place], [address], 04:12:26 Medication Orders progesteron e micronized 200 mg capsule 2024 025 [email or web address] Not available 09:46:24 Patient TargetsNo targets recorded. Patient InstructionsNo instructions recorded. Reason for Referral None Reported. Results Created Date Observation Date Name Description Value Unit Range Abnormal Flag Note LastModifiedBy Organization Detail LastModifiedTime 01/07/2001/06/2025 DHEA SULFA TE DHEA-sulfate 182 ug/dL Femal e Range s Age(y ) Range (ug/d L) 10-15 34-28 0 15-20 65-36 8 20-25 148-4 07 25-35 99-34 0 35-45 61-33 7 45-55 35-25 6 55-65 19-20 5 65-75 9-246 > 75 12-15 4 Not Available [facility] (Lab) [address], [place], [address], 01/14/2025 04:30:37 01/07/20 25 01/06/2025 PROGE STERO NE progesterone 0.11 NG/mL This assay was perfo rmed using [employer] ratio n reage nts and test kits. Value s obtai daryl with other assay metho ds or kits canno t be used inter [facility] . Femal e Proge stero ne Range s: Folli cular phase 0.06- 0.89 ng/mL Ovula tion phase 0.12- 12.00 ng/mL Lutea l phase 1.83- 23.90 ng/mL Postm enopa usal <0.05 -0.13 ng/mL Healt hy Pregn ant Women 1st Trime ster 11.0- 44.30 2nd Trime ster 25.40 -83.3 0 3rd Trime ster 58.70 -214. 00 Not Available [facility] (Lab) [address] [place], [address], 01/14/2025 04:30:37 01/07/20 25 01/06/2025 PROLA CTIN prolactin, total 29.40 NG/mL 4.79-2 3.30 high This assay was perfo rmed using [employer] ratio n reage nts and test kits. Value s obtai daryl with other assay metho ds or kits canno t be used inter [facility] . Not Available [facility] (Lab) [address] [place], [address], 01/14/2025 04:30:37 01/07/20 25 01/06/2025 ESTRA DIOL estradiol 205.0 pg/mL This assay was perfo rmed using [employer] ratio n reage nts and test kits. Value s obtai daryl with other assay metho ds or kits canno t be used inter [facility] . Femal e Estra diol Range s: Folli cular phase 12.4- 233 pg/mL Ovula tion phase 41.0- 398 pg/mL Lutea l phase 22.3- 341 pg/mL Postm enopa usal <5-13 8 pg/mL Healt hy Pregn ant Women 1st Trime ster 154-3 243 pg/mL 2nd Trime ster 1561- 52480 pg/mL 3rd Trime ster 8525- >3000 0 pg/mL Not Available [facility] (Lab) [address] [place], [address], 01/14/2025 04:30:38 01/07/20 25 01/06/2025 TSH, REFLE X FREE T4 TSH 1.46 uIU/m L 0.30-5 .33 Not Available [facility] (Lab) [address] [place], [address], 01/14/2025 04:30:38 01/07/20 25 01/06/2025 FSH FSH 3.8 mIU/m L This assay was perfo rmed using [employer] ratio n reage nts and test kits. Value s obtai daryl with other assay metho ds or kits canno t be used inter [facility] . Femal es Folli cular : 3.5-1 2.5 mIU/m L Ovula tion: 4.7-2 1.5 mIU/m L Lutea l: 1.7-7 .7 mIU/m L Postm enopa use: 25.8- 134.8 mIU/m L Not Available [facility] (Lab) [address] [place], [address], 01/14/2025 04:30:38 01/07/20 25 01/06/2025 LH (LUTE NIZIN G HORMO NE) LH 8.4 mIU/m L This assay was perfo rmed using [employer] ratio n reage nts and test kits. Value s obtai daryl with other assay metho ds or kits canno t be used inter [facility] . Femal es Mid-F ollic ular: 2.4-1 2.6 mIU/m L Mid-C ycle: 14.0- 95.6 mIU/m L Mid-L uteal : 1.0-1 1.4 mIU/m L Postm enopa use: 7.7-5 8.5 mIU/m L Not Available [facility] (Lab) [address], [place], [address], 01/14/2025 04:30:39 01/07/2001/06/2025 HEMOG LOBIN A1C hemoglobin A1C 5.3 % 4.0-5. 6 The Ameri can Diabe leona Assoc iatio n recom mends that a prima ry goal of thera py shoul d be a HBA1C of < 7% and that physi cians shoul d reeva luate the treat ment regim en in patie nts with HBA1C value s consi stent ly > 8%. <5.7% Tiana l 5.7 - 6.4% Incre ased risk for diabe leona >=6.5 % Diagn ostic of diabe leona <7.0% Goal of thera py >8.0% Actio n sugge sted Not Available [facility] (Lab) [address], [place], [address], 01/14/2025 04:30:39 01/07/2001/06/2025 TESTO STERO NE, FREE( DIALY SIS) AND TOTAL (LC/M S/MS) testosterone , total 21 NG/dL 2-45 For addit ional infor emmanuel keith e refer to http: //[place] [employer]ia gnost [employer].c om/fa q/ Total Testo stero neLCM SMSFA Q165 (This link is being provi ded for infor theresa pérez/ educa guru l purpo ses only. ) This test was devel oped and its andree tical perfo rmanc e renetta cteri stics have been deter mined by [facility], [place]. It has not been clear ed or appro armando by the U.S. Food and Drug Admin istra tion. This assay has been valid ated pursu ant to the CLIA regul ation s and is used for clini kalyn purpo ses. Not Available [facility] (Lab) [address], [place], [address], 01/14/2025 04:30:39 01/07/20 25 01/06/2025 TESTO STERO NE, FREE( DIALY SIS) AND TOTAL (LC/M S/MS) testosterone , free 3.1 pg/mL 0.1-6. 4 This test was devel oped and its andree tical perfo rmanc e renetta cteri stics have been deter mined by [employer] [facility] [place], [place]. It has not been clear ed or appro armando by the U.S. Food and Drug Admin istra tion. This assay has been valid ated pursu ant to the CLIA regul ation s and is used for clini kalyn purpo ses. Perfo rming Organ izati on Infor matio n: Site ID: [id number] Name: [employer] Chris richard [facility] Addre ss: [id number] [address] [place], [place] Direc tor: Luis Alberto Short MD PhD Not Available [facility] (Lab) [address] [facility], [place], [address], 01/14/2025 04:30:39 01/07/20 25 01/06/2025 17-OH PROGE STERO NE 17-hydroxypr ogesterone, lc/MS/MS 38 NG/dL Adult Femal e Refer ence Range s for 17-Hy droxy proge stero ne: Pre-M enopa usal Mid Folli cular : 23-10 2 ng/dL Pre-M enopa usal Surge : 67-34 9 ng/dL Pre-M enopa usal Mid Lutea l: 139-4 31 ng/dL Postm enopa usal Phase : < or = 45 ng/dL Pregn lakshmi: First Trime ster: 78-45 7 ng/dL Secon d Trime ster: 90-35 7 ng/dL Third Trime ster: 144-5 78 ng/dL This test was devel oped and its andree tical perfo rmanc e renetta cteri stics have been deter mined by [employer]. It has not been clear ed or appro armando by the FDA. This assay has been valid ated pursu ant to the CLIA regul ation s and is used for clini kalyn purpo ses. Perfo rming Organ izati on Infor theresa n: Site ID: [id number] Name: Maximino rivera s/Jhon karina [facility] , Addre ss: [id number] [place] [address] Direc tor: Misa murphy MD,Ph D,EVELYN Not Available [facility] (Lab) [address], [place], [address], 01/14/2025 04:30:40 01/07/20 25 01/06/2025 urina lysis , dipst ick Leukocytes - Not Available [facility] [address], [place], [address], 01/06/2025 11:03:57 01/07/20 25 01/06/2025 urina lysis , dipst ick Nitrite - Not Available [facility] [address], [place], [address], 01/06/2025 11:03:57 01/07/20 25 01/06/2025 urina lysis , dipst ick Urobilinogen - Not Available [facility] jeremie [address], [place], [address], 01/06/2025 11:03:57 01/07/20 25 01/06/2025 urina lysis , dipst ick Protein trace Not Available [facility] [address], [place], [address], 01/06/2025 11:03:57 01/07/20 25 01/06/2025 urina lysis , dipst ick pH 8 Not Available [facility] [address], [place], [address], 01/06/2025 11:03:57 01/07/20 25 01/06/2025 urina lysis , dipst ick Blood +++ Not Available [facility] [address], [place], [address], 01/06/2025 11:03:57 01/07/20 25 01/06/2025 urina lysis , dipst ick Specific [place] 1.000 Not Available [facility] tressa [address], [place], [address], 01/06/2025 11:03:57 01/07/20 25 01/06/2025 urina lysis , dipst ick Ketone - Not Available [facility] [address], [place], [address], 01/06/2025 11:03:57 01/07/20 25 01/06/2025 urina lysis , dipst ick Bilirubin - Not Available [facility] [address], [place], [address], 01/06/2025 11:03:57 01/07/20 25 01/06/2025 urina lysis , dipst ick Glucose - Not Available [facility] [address], [place], [address], 01/06/2025 11:03:57 01/07/20 25 01/06/2025 urina lysis , dipst ick Appearance clear Not Available [facility] [address], [place], [address], 01/06/2025 11:03:57 01/07/20 25 01/06/2025 urina lysis , dipst ick Color dark yellow Not Available [facility] [address], [place], [address], 01/06/2025 11:03:57 01/07/20 25 01/06/2025 pregn lakshmi test, urine HCG negati ve Not Available [facility] [address], [place], [address], 01/06/2025 10:16:12 01/26/20 25 01/25/2025 PROLA CTIN prolactin, total 41.50 NG/mL 4.79-2 3.30 high This assay was perfo rmed using [employer] ratio n reage nts and test kits. Value s obtai daryl with other assay metho ds or kits canno t be used inter goode eably . Not Available [facility] (Lab) [address], [place], [address], 01/26/2025 06:49:33 01/13/20 25 01/12/2025 US, pelvi s No observ ation record ed. [email or web address] [facility] [address], [place], [address], 01/12/2025 13:33:28 01/13/20 25 01/12/2025 US, trans vagin al No observ ation record ed. [email or web address] [facility] [address], [place], [address], 01/12/2025 13:33:37 01/13/20 25 01/12/2025 US, pelvi s No observ ation record ed. [email or web address] [address], [place], [address], 02/08/2025 13:57:40 Result Notes None recorded. Medical Equipment None Reported. Allergies No known drug allergies Medications Name Sig Start Date Stop Date Status Note LastModified by Organization Details LastModified Time cetirizine 10 mg tablet TAKE 1 TABLET BY MOUTH EVERY DAY 01/06 completed Not Available Not Available Not Available progesterone micronized 200 mg capsule Take 1 capsule every day by oral route for 14 days. 02/08 completed Not Available Not Available Not Available fluticasone propionate 50 mcg/actuatio n nasal spray,suspen [...] Updated DateTime 01/06/2025 167.64 cm 43.6 kg/m2 943963.94 g 110/72 mm[Hg] Jacquelin Peña [facility] 01/06/2025 09:51:54 Date Recorded Body height Body mass index (BMI) Body weight Systolic And Diastolic Provider Name and Address Organization Details Last Updated DateTime 02/08/2025 167.64 cm 43.6 kg/m2 888667.94 g 123/74 mm[Hg] Maty Jamie [facility] 02/08/2025 09:46:11 Social History Question Answer Notes LastModified by Organizat ion Details LastModified Time Tobacco Smoking Status Never [facility]oker [facility] 01/06/2025 09:48:23 Are You Blind Or Do You Have Difficulty Seeing? No [email or web address] Information n ot available 01/06/2025 What Is Your Level Of Caffeine Consumption? Moderate [email or web address] Information not available 01/06/2025 In The 14 Days Before Symptom Onset, Have You Had Close Contact With A Laboratory-confirm ed COVID-19 While That Case Was Ill? No [email or web address] Information n ot available 01/06/2025 In The 14 Days Before Symptom Onset, Have You Had Close Contact With A Person Who Is Under Investigation For COVID-19 While That Person Was Ill? No [email or web address] Information not available 01/06/2025 Have You Been To An Area Known To Be High Risk For COVID-19? No [email or web address] Information not available 01/06/2025 Are You Deaf Or Do You Have Serious Difficulty Hearing? No [email or web address] Information not available 01/06/2025 What Type Of Diet Are You Following? REGULAR [email or web address] Information n ot available 01/06/2025 What Is The Highest Grade Or Level Of School You Have Completed Or The Highest Degree You Have Received? NV92763-9 [email or web address] Information not available 01/06/2025 Do You Use Protection During Sex? No [email or web address] Information not available 01/06/2025 Do You Use Your Seat Belt Or Car Seat Routinely? Yes [email or web address] Information not available 01/06/2025 Are You Sexually Active? Yes [email or web address] Information not available 01/06/2025 Do You Have Smoke And Carbon Monoxide Detectors In Your Home? Yes [email or web address] Information not available 01/06/2025 Do You Use Sunscreen Routinely? No [email or web address] Information not available 01/06/2025 Do You Have Difficulty Walking Or Climbing Stairs? No Information not available 01/06/2025 Sex: Unknown Functional Status Question Answer Note LastModified by Organizat ion Details LastModified Time What is your level of alcohol consumption? Occasional [email or web address] Information not available 01/06/2025 Are you currently employed? Yes Information not available 01/06/2025 Are you able to walk? YESWOREST [email or web address] Information not available 01/06/2025 Are you able to care for yourself independently? 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 No [email or web address] Information not available 01/06/2025 What is your exercise level? Moderate [email or web address] Information not available 01/06/2025 Mental Status Question Answer Note LastModified by Organization D etails LastModified Time Do you feel stressed (tense, restless, nervous, or anxious, or unable to sleep at night)? [id number] [email or web address] Information not available 01/06/2025 Family History Relationship Description Onset Age of this Age Resolved Age Notes LastModified by Organization Details LastModified Time Maternal Uncle Malignant tumor of colon [email or web address] Not available 2024 09:52:56 Maternal Grandmother Heart disease Not available 2024 09:53:09 Maternal Grandfather Diabetes mellitus [email or web address] Not available 2024 09:53:17 Medical History Condition Response Allergies (Food, seasonal, environmental ) N Other N Breast Cancer N Drug/Latex Allergies/Reactions N Blood Transfusion N Dermatologic Disorders N Lung Disease N [...] HPV Vaccine Y Duration of Flow (days) 50 Current Control Method None Are cycles usually normal Y Sexually Active? Y Menses Monthly Y Sexual Problems? N LMP Definite Obstetrics History GPAL:G 0 P 0 0 0 0 Past Encounters Encounter ID Performer Location Encounter Start Date Encounter Closed Date Diagnosis/Indication Diagnosis SNOMED-CT Code Diagnosis ICD10 Code Diagnosis Note [id number] Antony Dumont MD [facility] [address] [address] 01/06/2025 09:27:03 01/06/2025 10:47:29 Long menstrual cycle 786079741 N92.1 The patient and I discussed the various causes of abnormal uterine bleeding, including polyps, fibroids, hyperplasi a, atypia, anovulatio n, etc.Discus sed typical evaluation with labs and pelvic US. Discussed progestero ne 200 mg PO nightly x 14 days to help stop bleeding in the meantime.P diandra ultrasound ordered, labs ordered.Ag simms will follow-up [...] for ultrasound f/u and pelvic exam/pap smear. [id number] Antony Dumont MD [facility] [address] [address] 01/12/2025 12:12:35 01/12/2025 13:53:27 Long menstrual cycle 878580400 N92.1 [id number] LAYO TIJERINA MD [facility] [address] [address] 02/08/2025 09:37:15 02/08/2025 10:19:21 Prolactin level above reference range [id number] R79.89 - PRL 29.4, repeat 41.5- one episode of prolonged irregular bleeding lasting 50 days- having some headaches over the last month- labs otherwise normal, overall normal appearing pelvic US- will order MRI pituitary/ brain to evaluate Health Concerns Section Related Observation LastModified by Organization Detai ls LastModified Time None Recorded Concern Status LastModified by Organization Details LastModified Time None Recorded Advance Directives Directive None Recorded Payers Insurance Date Sequence Insurance Name Policy Number Policy Caban Covered Member ID Caban Member ID Guarantor Name 02/05/2025 1 [employer] [id number] Liby Adcox [id number] Liby Adcox OBGyn Episode No OBEpisode recorded.
--- OUTSIDE RECORDS SUMMARY | 2025-02-16 08:35 | XMS_ITS | Referral Summary ---
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 Gender Identity Not on file Sexual Orientation Not on file Last Filed Vital Signs Vital Sign Reading Time Taken Comments Blood Pressure 118/66 06/12/2023 6:40 AM CUSTOMER SUPPLY COORDINATOR Pulse 113 06/12/2023 6:40 AM CUSTOMER SUPPLY COORDINATOR Temperature 36.8 C (98.2 F) 06/12/2023 6:40 AM CUSTOMER SUPPLY COORDINATOR Respiratory Rate 18 06/12/2023 6:40 AM CUSTOMER SUPPLY COORDINATOR Oxygen Saturation 99% 06/12/2023 6:40 AM CUSTOMER SUPPLY COORDINATOR Inhaled Oxygen Concentration - - Weight 117.9 kg (260 lb) 06/12/2023 2:16 AM CUSTOMER SUPPLY COORDINATOR Height 167.6 cm (5' 6) 06/12/2023 2:16 AM CUSTOMER SUPPLY COORDINATOR Body Mass Index 41.97 06/12/2023 2:16 AM CUSTOMER SUPPLY COORDINATOR Plan of Treatment Not on file Insurance [facility] PLAN [facility] PLAN [facility] Care Teams Nurse Examiner Relationship Specialty Start Date End Date No, Physician PCP - General 07/26/22 Unknown, Notinfile 07/26/22
== END 2025-02-16 08:30 | disposition home or self-care (01) ==
PROVIDERS: PCP Nurse Practitioner Adult Health; Visit Provider Internal Medicine Cardiovascular Disease
DX: R07.89 Other chest pain (principal)
CPT/HCPCS: 93017

== ENCOUNTER 2025-03-16 14:40 | Outpatient (CLI) | payer OTHER, SELFPAY ==
--- NOTE | ~2025-03-16 | MR_ITS ---
EXAMINATION: MR pituitary wo/w con DATE: 03/16/2025 16:17 INDICATION: Abnormal findings of blood chemistry TECHNIQUE: Magnetic resonance imaging (MRI) of the brain and brainstem was performed without and with 20 mL Multihance intravenous contrast. Whole-brain sequences included sagittal T1-weighted FSE, axial diffusion-weighted FS EPI, axial 3D SWAN, axial T2-weighted FLAIR Propeller, and axial T2-weighted Propeller. Small muhls-[id number] sequences included sagittal and coronal T1- weighted FSE centered at the pituitary. Postcontrast sequences included small [id number] coronal T1-weighted FSE in a time course and sagittal T1-weighted FSE and whole-brain axial T1-weighted FSE. Apparent diffusion coefficient (ADC) maps were created. COMPARISON: None. FINDINGS: There are no areas of restricted diffusion to suggest acute infarction. No intracranial hemorrhage. There is a 4 x 4 x 3 mm nodule at the left side of the pituitary which is hypoenhancing on the post contrast imaging obtained approximately 8-9 minutes following injection consistent with a microadenoma. The pituitary remains otherwise normal with no bulging above the level of the sella, with normal midline pituitary stalk and normal posterior pituitary bright spot. No other abnormal intracranial masses. There are no intraparenchymal signal abnormalities seen on the other pulse sequences. The ventricles are symmetric and normal in size. There are no abnormal extra-axial fluid collections. Flow voids are seen in the cerebral arteries on the T2-weighted sequences consistent with their expected patency. Visualized orbits and soft tissues are unremarkable. There is an incidental branching contrast enhanced developmental venous anomaly extending across the white matter of the right frontal lobe. There are no other areas of abnormal enhancement on the post contrast images. IMPRESSION: 1. 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 2. 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 Otherwise unremarkable brain MRI. Reviewed, dictated and finalized at location A. IMPRESSION: 1. 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 2. 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 Otherwise unremarkable brain MRI.
--- OUTSIDE RECORDS SUMMARY | 2025-03-16 14:48 | XMS_ITS | Clinical Summary ---
Author Organization [facility] Address [id number] [place] [id number] Care Team Providers Care Resource Room Teacher Name Role Phone No, Physician Primary Care Provider [phone] Unknown, Notinfile Unavailable Unavailable Allergies No known [...] on file Legal Sex Female 7:43 PM BUSINESS DEVELOPMENT COORDINATOR Gender Identity Not on file Sexual Orientation Not on file Obstetrics History Last Filed Vital Signs Vital Sign Reading Time Taken Comments Blood Pressure 118/66 06/12/2023 6:40 AM BUSINESS DEVELOPMENT COORDINATOR Pulse 113 06/12/2023 6:40 AM BUSINESS DEVELOPMENT COORDINATOR Temperature 36.8 C (98.2 F) 06/12/2023 6:40 AM BUSINESS DEVELOPMENT COORDINATOR Respiratory Rate 18 06/12/2023 6:40 AM BUSINESS DEVELOPMENT COORDINATOR Oxygen Saturation 99% 06/12/2023 6:40 AM BUSINESS DEVELOPMENT COORDINATOR Inhaled Oxygen Concentration - - Weight 117.9 kg (260 lb) 06/12/2023 2:16 AM BUSINESS DEVELOPMENT COORDINATOR Height 167.6 cm (5' 6) 06/12/2023 2:16 AM BUSINESS DEVELOPMENT COORDINATOR Body Mass Index 41.97 06/12/2023 2:16 AM BUSINESS DEVELOPMENT COORDINATOR Plan of Treatment Health Maintenance Due Date [...] exists HPV Vaccines Completed 12/30/2017, 02/25/2015 Insurance [facility] PLAN PLAN PLAN [facility] PLAN Care Teams Resource Room Teacher Relationship Specialty Start Date End Date No, Physician PCP - General 07/26/22 Unknown, Notinfile 07/26/22
--- OUTSIDE RECORDS SUMMARY | 2025-03-16 14:48 | XMS_ITS | Clinical Summary ---
Author Organization [facility] Address [address] [place] [address] Phone Care Team Providers Care Induction Machine Operator Name Role Phone Provider, None Primary Care [...] Insurance MEDICAID BLUE CROSS [place] Care Teams Induction Machine Operator Relationship Specialty Start Date End Date Provider, None [place] PCP - General 01/10/22
== END 2025-03-16 14:41 | disposition home or self-care (01) ==
PROVIDERS: PCP Nurse Practitioner Adult Health; Visit Provider Obstetrics & Gynecology
DX: R79.89 Other specified abnormal findings of blood chemistry (principal); E23.7 Disorder of pituitary gland, unspecified
CPT/HCPCS: 70553; A9577